=== PATIENT | male | born 1965 | race Caucasian/White ===

== ENCOUNTER 2017-09-27 11:15 | Inpatient (IN) | payer OTHER ==
[2017-09-27] MEDS ORDERED: Metoclopramide IV* 5 MG/ML 2 ML VIAL IV SLOW PU ONE (11:36)
[2017-09-27] MEDS ORDERED: Morphine VIAL* 4 MG/ML VIAL (1 ml vial) IV ONE ×2 (11:36→14:16)
[2017-09-27 12:01] LABS: ABS Basophils 0.1 10^3/ul (0-0.2); ABS Eosinophils 0.6 10^3/ul (0-0.6); ABS Lymphocytes 1.3 10^3/ul (1.0-4.8); ABS Monocytes 1.2 10^3/ul (0-0.8); ABS Neutrophils 10.2 10^3/ul (1.5-7.7); ABS Nucleated RBC 0 10^3/ul; Eosinophil % 4.2 % (0-6); Hematocrit 39 % (42-52); Hemoglobin 13.2 g/dl (14.0-18.0); Lymphocyte % 9.6 % (25-47); Mean Corpuscular HGB Conc 34 g/dl (31-36); Mean Corpuscular Hemoglobin 30 pg (27-31); Mean Corpuscular Volume 90 fL (80-94); Mean Platelet Volume 7.9 um3 (7.4-10.4); Nucleated Red Blood Cells % 0.1; Platelet Count 277 10^3/ul (150-450); Red Blood Count 4.36 10^6/ul (4.0-5.4); Red Cell Distribution Width 14 % (10.5-15); White Blood Count 13.4 10^3/ul (3.5-10.8)
[2017-09-27 12:20] LABS: EGFR Non-African American 44.7 (>60)
--- NOTE | 2017-09-27 12:21 | RAD ---
HISTORY: Syncope COMPARISONS: August 05, 2017, MRI dated August 05, 2017 TECHNIQUE: Multiple contiguous axial CT scans were obtained of the head without intravenous contrast. FINDINGS: HEMORRHAGE/INFARCT: There is no hemorrhage or acute infarct. MASSES/SHIFT: There is no mass or shift. EXTRA-AXIAL SPACES: There are no extra-axial fluid collections. SULCI AND VENTRICLES: The sulci and ventricles are normal in size and position for the patient's stated age. CEREBRUM: There is hypoattenuation of the periventricular and subcortical white matter. BRAINSTEM: There is mild hypoattenuation of the pontine white matter CEREBELLUM: There are no focal parenchymal abnormalities. VESSELS: The vessels are grossly normal. PARANASAL SINUSES: The paranasal sinuses are clear. ORBITS: The orbits are unremarkable. BONES AND SOFT TISSUE: No bone or soft tissue abnormalities are noted. OTHER: None IMPRESSION: NO ACUTE INTRACRANIAL PATHOLOGY. CHRONIC SMALL VESSEL ISCHEMIC CHANGES.
--- NOTE | 2017-09-27 12:43 | RAD ---
HISTORY: Syncope, fall, neck trauma COMPARISONS: None TECHNIQUE: Multiple contiguous axial CT scans were obtained of the cervical spine without intravenous contrast, with coronal and sagittal multiplanar reformations. FINDINGS: BRAIN: The visualized brain is unremarkable CENTRAL CANAL: Evaluation of the central canal is limited on CT technique; however, there is no obvious canalicular mass or epidural hemorrhage. ALIGNMENT: There is a mild scoliotic curvature of the spine. VERTEBRAL BODIES: There is anterolateral marginal osteophyte formation most pronounced of C3-C4 and C5-C6. There is no displaced fracture.. JOINTS: There is osteoarthritis of the atlantoaxial articulation. There is no subluxation or dislocation. MUSCULATURE: Unremarkable INTERVERTEBRAL DISCS: There is diffuse loss of intervertebral disc height. AXIAL IMAGES: C2-C3: There is no osseous neural foraminal narrowing or central canal stenosis. C3-C4: There is mild bilateral neural foraminal narrowing. There is no osseous central canal stenosis. C4-C5: There is no osseous neural foraminal narrowing or central canal stenosis. C5-C6: There is no osseous neural foraminal narrowing or central canal stenosis. C6-C7: There is no osseous neural foraminal narrowing or central canal stenosis. C7-T1: There is no osseous neural foraminal narrowing or central canal stenosis. SOFT TISSUES: The visualized soft tissues of the neck are unremarkable. The prevertebral fat stripe is preserved. OTHER: None. IMPRESSION: NO ACUTE OSSEOUS INJURY TO THE CERVICAL SPINE. DEGENERATIVE DISC DISEASE AND OSTEOARTHRITIS
--- NOTE | 2017-09-27 13:54 | RAD ---
HISTORY: Syncope COMPARISONS: August 05, 2017 VIEWS: 2: Frontal and lateral views of the chest. FINDINGS: CARDIOMEDIASTINAL SILHOUETTE: The cardiomediastinal silhouette is normal. EUSEBIO: The eusebio are normal. PLEURA: The costophrenic angles are sharp. No pleural abnormalities are noted. LUNG PARENCHYMA: There is patchy alveolar opacification of the right lung base near the cardiophrenic angle. ABDOMEN: The upper abdomen is clear. There is no subphrenic gas. BONES AND SOFT TISSUES: No bone or soft tissue abnormalities are noted. OTHER: None. IMPRESSION: PATCHY ATELECTASIS VERSUS CONSOLIDATION OF THE RIGHT LOWER LUNG.
--- NOTE | 2017-09-27 13:55 | RAD ---
HISTORY: Fall. No other history is provided. COMPARISONS: None VIEWS: 4, Frontal, lateral, and oblique views of the left hand FINDINGS: BONE DENSITY: There is diffuse osteopenia. BONES: There is no displaced fracture. JOINTS: There is mild osteoarthritis of the interphalangeal joints. ALIGNMENT: There is no dislocation. SOFT TISSUES: There is peripheral arterial calcification. OTHER FINDINGS: None. IMPRESSION: 1. OSTEOPENIA. 2. PERIPHERAL ARTERIAL DISEASE. 3. NO ACUTE OSSEOUS INJURY. IF SYMPTOMS PERSIST, RECOMMEND REPEAT IMAGING.
--- NOTE | 2017-09-27 14:02 | RAD ---
INDICATION: Left hip injury. COMPARISON: There are no prior studies available for comparison. TECHNIQUE: An AP view of the pelvis and frontal and lateral views of the left hip were obtained. FINDINGS: Due to the position of the left hip the left femoral neck is not visualized. There is likely an underlying fracture although this is not well demonstrated. No other fractures are seen. IMPRESSION: PROBABLE LEFT FEMORAL NECK FRACTURE NOT WELL SEEN ON THE IMAGES. RECOMMEND A CT OF THE PELVIS AND LEFT HIP FOR FURTHER EVALUATION.
--- NOTE | 2017-09-27 15:04 | RAD ---
INDICATION: Left hip fracture COMPARISON: Left hip same date TECHNIQUE: Noncontrast axial source images were obtained from the iliac crests through the symphysis pubis. FINDINGS: There is a transverse fracture through the left femoral neck. There is foreshortening varus angulation. The femoral head remains in the acetabulum. There are no other fractures of the bony pelvis or proximal femurs. No free fluid or adenopathy is seen. The noncontrast CT appearance of the bowel is unremarkable. The superficial soft tissues appear normal. The bladder appears normal. IMPRESSION: LEFT FEMORAL NECK FRACTURE
[2017-09-27 15:37] LABS: Urine Appearance Clear; Urine Blood Negative (Negative); Urine Color Yellow; Urine Ketones Negative (Negative); Urine Protein Negative (Negative); Urine Specific Gravity 1.012 (1.010-1.030); Urine Urobilinogen Negative (Negative)
--- NOTE | 2017-09-27 15:46 | ED ---
Adult Trauma - HPI Summary HPI Summary: Patient is a 52-year-old male presenting to the ED by [address] [place] [address] with chief complaint of left hip pain since a fall last evening at 5 PM. He states upon attempting to get out of his wheelchair, he began to get dizzy and fell backwards, hitting the neck on his wheelchair and falling directly onto his left hip. He has been unable to ambulate since that time. Guards at the present were able to help him back into his wheelchair where he remained for the rest of the evening. He endorses continuing pain this morning and was brought to the ED for evaluation. He also endorses left hand pain, but denies any range of motion limitations. He denied hitting his head, loss of consciousness, memory loss, confusion, visual or double vision changes. However , history of 3 recent CVA, most recent 2 months ago and was hospitalized here at [facility]. He is currently on Plavix and aspirin. - History of Current Complaint Chief Complaint: EDHipPelvisInjury Stated Complaint: HIP PAIN Time Seen by Provider: 09/27/17 11:21 Hx Obtained From: Patient Mechanism of Injury: Direct Blow Ambulatory at the Scene: No Onset/Duration: Started Hours Ago Onset of Pain: Immediate Onset Severity: Moderate Current Severity: Moderate Pain Intensity: 6 Pain Scale Used: 0-10 Numeric Location: Chest Character: Aching Aggravating Factor(s): Nothing Alleviating Factor(s): Rest, Ice Associated Signs & Symptoms: Positive: Negative - No I cannot recall almost every day for Related History: Anticoagulants - Additional Pertinent History Primary Care Physician: KRISHAN - Allergy/Home Medications Allergies/Adverse Reactions: Allergies Allergy/AdvReac Type Severity Reaction Status Date / Time atorvastatin Allergy Unknown Verified 08/05/17 08:39 Reaction Details codeine Allergy Unknown Verified 08/05/17 08:39 Reaction Details penicillin G Allergy Rash Verified 08/05/17 08:39 Sulfa (Sulfonamide Allergy Rash Verified 08/05/17 08:39 Antibiotics) Home Medications: Home Medications Fluticasone HFA 220 mcg(NF) [Flovent HFA 220 Mcg(NF)] 1 puff INH BID 09/27/17 [ History Confirmed 09/27/17] PMH/Surg Hx/FS Hx/Imm Hx Previously Healthy: Yes Endocrine/Hematology History: Reports: Hx Diabetes - TYPE 2 IDDM Cardiovascular History: Reports: Hx Angina, Hx Coronary Artery Disease - EF%60, Hx Hypercholesterolemia - HLD, Hx Hypertension, Hx Peripheral Vascular Disease, Other Cardiovascular Problems/Disorders - BL LE EDEMA, CARDIAC CATH WITH STENTS X 3 2009 Denies: Hx Pacemaker/ICD Respiratory History: Reports: Hx Asthma, Hx Chronic Obstructive Pulmonary Disease (COPD) GI History: Reports: Hx Gastroesophageal Reflux Disease, Hx Ulcer History: Reports: Hx Benign Prostatic Hyperplasia, Other Problems/ Disorders - STRAIGHT CATH QID W/ 14FR Musculoskeletal History: Reports: Hx Back Problems, Other Musculoskeletal History - RIGHT SIDED WEAKNESS R/T OLD CVA Sensory History: Reports: Hx Contacts or Glasses - NOT W/PT, Hx Hearing Aid - NOT W/PT, Hx Hearing Problem Opthamlomology History: Reports: Hx Contacts or Glasses - NOT W/PT Neurological History: Reports: Hx Dementia, 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, Other Neuro Impairments/Disorders - NEUROPATHY BL LE FEET TO KNEE Psychiatric History: Reports: Hx Depression, Hx Suicide Attempt - 2005 Denies: Hx Panic Disorder - Surgical History Surgery Procedure, Year, and Place: TONSILECTOMY, CARDIAC STENT 2010 X 3 Hx Anesthesia Reactions: No Infectious Disease History: No Infectious Disease History: Denies: Traveled Outside the [place] in Last 30 Days - Family History Known Family History: Positive: Unknown Negative: Blood Disorder - Social History Occupation: Unemployed Lives: With Family Alcohol Use: None Hx Substance Use: No Substance Use Type: Reports: None Hx Tobacco Use: No Smoking Status (MU): Never Smoked Tobacco Review of Systems Constitutional: Negative Negative: Fever, Chills, Fatigue Eyes: Negative Cardiovascular: Negative Respiratory: Negative Positive: Arthralgia Skin: Negative Neurological: Negative All Other Systems Reviewed And Are Negative: Yes Physical Exam Triage Information Reviewed: Yes Vital Signs On Initial Exam: Initial Vitals Pulse Resp BP Pulse Ox 80 15 130/71 95 09/27/17 11:27 09/27/17 11:27 09/27/17 11:27 09/27/17 11:27 Appearance: Positive: Well-Appearing, Well-Nourished Head/Face: Positive: Normal Head/Face Inspection Eyes: Positive: EOMI, MORAIMA Neck: Positive: Supple, No Lymphadenopathy Respiratory/Lung Sounds: Positive: Clear to Auscultation, Breath Sounds Present Cardiovascular: Positive: RRR Musculoskeletal: Positive: Pain @ - left hip Neurological: Positive: Speech Normal Psychiatric: Positive: Affect/Mood Appropriate Diagnostics - Vital Signs Vital Signs Temp Pulse Resp BP Pulse Ox 09/27/17 15:04 16 09/27/17 12:06 75 92 09/27/17 11:53 16 09/27/17 11:31 98.1 F 80 16 130/71 99 09/27/17 11:27 80 15 130/71 95 - Laboratory Lab Results: Lab Results 09/27/17 09/27/17 09/27/17 Range/Units 11:49 11:49 11:49 WBC 13.4 H (3.5-10.8) 10^3/ul RBC 4.36 (4.0-5.4) 10^6/ul Hgb 13.2 L (14.0-18.0) g/dl Hct 39 L (42-52) % MCV 90 (80-94) fL MCH 30 (27-31) pg MCHC 34 (31-36) g/dl RDW 14 (10.5-15) % Plt Count 277 (150-450) 10^3/ul MPV 7.9 (7.4-10.4) um3 Neut % (Auto) 76.2 (38-83) % Lymph % (Auto) 9.6 L (25-47) % Geary % (Auto) 9.3 H (0-7) % Eos % (Auto) 4.2 (0-6) % Baso % (Auto) 0.7 (0-2) % Absolute Neuts (auto) 10.2 H (1.5-7.7) 10^3/ul Absolute Lymphs (auto) 1.3 (1.0-4.8) 10^3/ul Absolute Monos (auto) 1.2 H (0-0.8) 10^3/ul Absolute Eos (auto) 0.6 (0-0.6) 10^3/ul Absolute Basos (auto) 0.1 (0-0.2) 10^3/ul Absolute Nucleated RBC 0 10^3/ul Nucleated RBC % 0.1 Sodium 136 L (139-145) mmol/L Potassium 4.8 (3.5-5.0) mmol/L Chloride 109 (101-111) mmol/L Carbon Dioxide 20 L (22-32) mmol/L Anion Gap 7 (2-11) mmol/L BUN 32 H (6-24) mg/dL Creatinine 1.63 H (0.67-1.17) mg/dL Est GFR ( Amer) 57.4 (>60) Est GFR (Non-Af Amer) 44.7 (>60) BUN/Creatinine Ratio 19.6 (8-20) Glucose 147 H (70-100) mg/dL Lactic Acid 1.5 (0.5-2.0) mmol/L Calcium 9.9 (8.6-10.3) mg/dL Total Bilirubin 0.50 (0.2-1.0) mg/dL AST 20 (13-39) U/L ALT 20 (7-52) U/L Alkaline Phosphatase 105 H (34-104) U/L CK-MB (CK-2) 4.3 (0.6-6.3) ng/mL Troponin I 0.01 (<0.04) ng/mL Total Protein 7.9 (6.4-8.9) g/dL Albumin 4.4 (3.2-5.2) g/dL Globulin 3.5 (2-4) g/dL Albumin/Globulin Ratio 1.3 (1-3) Urine Color Urine Appearance Urine pH (5-9) Ur Specific [place] (1.010-1.030) Urine Protein (Negative) Urine Ketones (Negative) Urine Blood (Negative) Urine Nitrate (Negative) Urine Bilirubin (Negative) Urine Urobilinogen (Negative) Ur Leukocyte Esterase (Negative) Urine Glucose (Negative) 18/18 Range/Units 15:27 WBC (3.5-10.8) 10^3/ul RBC (4.0-5.4) 10^6/ul Hgb (14.0-18.0) g/dl Hct (42-52) % MCV (80-94) fL MCH (27-31) pg MCHC (31-36) g/dl RDW (10.5-15) % Plt Count (150-450) 10^3/ul MPV (7.4-10.4) um3 Neut % (Auto) (38-83) % Lymph % (Auto) (25-47) % Geary % (Auto) (0-7) % Eos % (Auto) (0-6) % Baso % (Auto) (0-2) % Absolute Neuts (auto) (1.5-7.7) 10^3/ul Absolute Lymphs (auto) (1.0-4.8) 10^3/ul Absolute Monos (auto) (0-0.8) 10^3/ul Absolute Eos (auto) (0-0.6) 10^3/ul Absolute Basos (auto) (0-0.2) 10^3/ul Absolute Nucleated RBC 10^3/ul Nucleated RBC % Sodium (139-145) mmol/L Potassium (3.5-5.0) mmol/L Chloride (101-111) mmol/L Carbon Dioxide (22-32) mmol/L Anion Gap (2-11) mmol/L BUN (6-24) mg/dL Creatinine (0.67-1.17) mg/dL Est GFR ( Amer) (>60) Est GFR (Non-Af Amer) (>60) BUN/Creatinine Ratio (8-20) Glucose (70-100) mg/dL Lactic Acid (0.5-2.0) mmol/L Calcium (8.6-10.3) mg/dL Total Bilirubin (0.2-1.0) mg/dL AST (13-39) U/L ALT (7-52) U/L Alkaline Phosphatase (34-104) U/L CK-MB (CK-2) (0.6-6.3) ng/mL Troponin I (<0.04) ng/mL Total Protein (6.4-8.9) g/dL Albumin (3.2-5.2) g/dL Globulin (2-4) g/dL Albumin/Globulin Ratio (1-3) Urine Color Yellow Urine Appearance Clear Urine pH 5.0 (5-9) Ur Specific [place] 1.012 (1.010-1.030) Urine Protein Negative (Negative) Urine Ketones Negative (Negative) Urine Blood Negative (Negative) Urine Nitrate Negative (Negative) Urine Bilirubin Negative (Negative) Urine Urobilinogen Negative (Negative) Ur Leukocyte Esterase Negative (Negative) Urine Glucose 1+(50 mg/dl) A (Negative) Result Diagrams: 09/27/17 11:49 09/27/17 11:49 Lab Statement: Any lab studies that have been ordered have been reviewed, and results considered in the medical decision making process. Adult Trauma Course/Dx - Course Course Of Treatment: During the course of treatment, the patient is evaluated for left hip pain as well as left hand pain and head/neck injury after a fall last evening. CT brain and cervical spine obtained which show no acute findings. Hand x-ray obtained which shows no acute findings. IMPRESSION: PROBABLE LEFT FEMORAL NECK FRACTURE NOT WELL SEEN ON THE IMAGES. CT OF THE PELVIS AND LEFT HIP FOR FURTHER EVALUATION. IMPRESSION: LEFT FEMORAL NECK FRACTURE. Discussed the case with Dr. Vega who agrees to admit. Slightly elevated white count. Discussed case with Dr. Spangler at 3:45 PM. - Diagnoses Differential Diagnosis/HQI/PQRI: Positive: Contusion(s), Fracture Provider Diagnoses: Femoral neck fracture - Physician Notifications Discussed Care Of Patient With: Kevyn Spangler - will see patient at [facility] [place] - admit Discharge - Sign-Out/Discharge Documenting (check all that apply): Discharge/Admit/Transfer Signing out patient TO: Devonte Vega - Discharge Plan Condition: Fair Disposition: ADMITTED TO [facility] Referrals: Los DUPREE,Janey Hodges [Primary Care Provider] - - Billing Disposition and Condition Condition: FAIR Disposition: HOSP-[facility] [place]
[2017-09-27] MEDS ORDERED: oxyCODONE/Acetamin 5/325 MG* TAB PO PRN ×2 (16:08→22:15)
[2017-09-27] MEDS ORDERED: Dextrose 50% Syringe 50 ML* 25 GM/50 ML SYRINGE IV PUSH PRN (16:11)
[2017-09-27] MEDS ORDERED: Acetaminophen TAB* 325 MG PO PRN (16:12)
[2017-09-27] MEDS ORDERED: Insulin GLARGINE(*) 1 UNITS UNIT SUBCUT ONE (21:00)
[2017-09-27] MEDS: Insulin LISPRO* 1 UNITS UNIT SUBCUT SCH ×2 (22:03→22:20)
[2017-09-27] MEDS ORDERED: Morphine VIAL* 4 MG/ML VIAL (1 ml vial) IV PRN (22:14)
[2017-09-27] MEDS ORDERED: oxyCODONE/Acetamin 5/325 MG* TAB PO ONE (22:15)
[2017-09-27] MEDS: Gemfibrozil TAB* 600 MG PO SCH (22:23)
[2017-09-27] MEDS: Donepezil TAB* 5 MG PO SCH (22:23)
[2017-09-27] MEDS: Famotidine TAB* 20 MG PO SCH (22:23)
[2017-09-27] MEDS: Cholecalciferol TAB* 1000 UNITS PO SCH (22:23)
[2017-09-27] MEDS: Tamsulosin CAP* 0.4 MG PO SCH (22:23)
[2017-09-27] MEDS: CMC:Rosuvastatin (NF) 20 MG TAB PO SCH (22:24)
[2017-09-27] MEDS: Metoprolol Succinate XL TAB* 25 MG PO SCH (22:26)
[2017-09-27] MEDS: Isosorbide Dinitrate TAB* 10 MG PO SCH (23:35)
--- NOTE | 2017-09-28 02:13 | HP ---
HISTORY AND PHYSICAL: DATE OF ADMISSION: 09/27/17 ADMITTING PROVIDER: Devonte Vega MD PRIMARY CARE PROVIDER: [facility]. CHIEF COMPLAINT: left hip pain after fall. HISTORY OF PRESENT ILLNESS: Demetrio Soni is a 52-year-old male with past medical history of multiple strokes, CAD, insulin dependent diabetes mellitus, COPD, hypertension, myocardial infarction, dementia, hyperlipidemia, BPH with recent acute stroke last 08/05/17. He has been using a wheelchair since discharge given worsening left-side weakness. The night prior to admission, he was standing up from his wheelchair to shave. He looked down and looked back up , got very dizzy, started to turn around trying to sit down and fell on his left hip and hands. He had pain in the left hip. The morning of admission, he was brought by ambulance to [facility], had imaging, x-ray initially that was concerning for possible femur fracture and this was confirmed on CT pelvis. Dr. Spangler of Orthopedics was consulted in the emergency room and is going to see the patient. The patient may need a hemiarthroplasty. His creatinine is slightly elevated at 1.6 from his baseline 1.3 to 1.4. He says he is currently somewhat short of breath. He has some wheezing and denies any chest pain. He has been more dizzy since the stroke. PAST MEDICAL HISTORY: BPH, CVA x3, CAD, [place], insulin dependent diabetes mellitus with A1c of 10.5 in May 2017, hypertension, dementia, hyperlipidemia. PAST SURGICAL HISTORY: Heart catheterization. MEDICATIONS: Include: 1. Flomax 0.5 mg q.h.s. 2. Spironolactone 50 mg p.o. daily. 3. Crestor 20 mg p.o. q.h.s. 4. Zantac 150 mg p.o. b.i.d. 5. Metoprolol succinate 25 mg p.o. at bedtime. 6. Lisinopril 10 mg p.o. at bedtime. 7. Isosorbide dinitrate 10 mg p.o. b.i.d. 8. Lantus 40 units subcutaneous b.i.d. 9. Gemfibrozil 600 mg p.o. b.i.d. 10. Lasix 20 mg p.o. q.a.m. 11. Flovent 1 puff inhaled b.i.d. 12. Aricept 5 mg p.o. q.h.s. 13. Docusate 200 mg p.o. daily. 14. Plavix 75 mg p.o. daily. 15. Cholecalciferol 5000 units p.o. at bedtime. 16. Zyrtec 10 mg p.o. daily. 17. Aspirin 81 mg daily. 18. Acetaminophen 650 mg p.o. t.i.d. p.r.n. ALLERGIES: PENICILLIN with rash, SULFA rash, CODEINE unknown, ATORVASTATIN unknown. FAMILY HISTORY: Mother with brain aneurysm, father with kidney cancer. SOCIAL HISTORY: He is a former smoker, only 2 years. No drug use or alcohol use. All of his family is , he does not have a medical surrogate that he can tell me at this time. REVIEW OF SYSTEMS: A complete 14-point review of systems was negative as per HPI. He denies any chest pain. He has numbness and paraesthesias in his bilateral legs from neuropathy and left-sided weakness of lower extremities. PHYSICAL EXAMINATION GENERAL: The patient is in no acute distress. VITAL SIGNS: Temperature 98.1, heart rate 90, oxygen sat 93%, respiratory rate 12, blood pressure 119/86. HEENT: Normocephalic, atraumatic except for a slight bruise on his left neck. Pupils equal, round, and reactive to light. Extraocular motion is intact. No scleral icterus. NECK: Supple. No cervical lymphadenopathy. PULMONARY: Anteriorly clear to auscultation bilaterally with no wheezing, rales or rhonchi. CARDIOVASCULAR: Regular rate and rhythm. No murmurs, rubs or gallops. ABDOMEN: Soft, nontender. Slightly distended/obese. EXTREMITIES: Warm, well-perfused. No peripheral edema. SKIN: No lesions, no rashes. NEUROLOGIC: Complete testing not performed due to left femur fracture. 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 Sensation is diminished bilaterally in lower extremities. Some slight proprioception in the right greater toe. Cranial nerves intact. LABORATORY DATA: White count 13.4, hemoglobin 13.2, hematocrit 39, platelets 277. Sodium 136, potassium 4.8, chloride 109, carbon dioxide 20, BUN 32, creatinine 1.63, glucose 147, lactic acid 1.5. AST 20, ALT 20, alk phos 105, troponin 0.01. IMAGING: Chest x-ray demonstrated patchy atelectasis versus consolidation at the right lower lobe. CT of the head, noncontrast, showed no acute intracranial pathology. There are chronic small vessel ischemic changes. The cervical spine CT demonstrated no acute osseous injury to the cervical spine, degenerative disk disease and osteoarthritis. Hand x-ray demonstrated osteopenia. Peripheral arterial disease. No acute osseous injury. His hip and pelvis x-ray demonstrated probable left femoral neck fracture, not well seen on the images. Recommend CT of the pelvis and left hip for further evaluation. His pelvis CT demonstrated left femoral neck fracture, transverse fracture to the left femoral neck with foreshortening varus and varus angulation. ASSESSMENT AND PLAN: Demetrio Soni is a 52-year-old male incarcerated prisoner at [place] presenting with history of multiple cerebrovascular accidents, coronary artery disease, myocardial infarction, insulin dependent diabetes mellitus, chronic obstructive pulmonary disease presenting with left femur fracture. We will follow up with Dr. Spangler's recommendations, put him n.p.o. at midnight for possible hemiarthroplasty procedure. He has a slight JEFFREY. I am going to hold his lisinopril,spironolactone and Lasix. We will hold his Plavix in the setting of possible surgery tomorrow. Continue his aspirin. I am going to reduce his Lantus to 20 units tonight from 40 units b.i.d. and will be started after surgery. He will be n.p.o. At midnight [address] Dr. Spangler's recommendations. We will give him Percocet for pain control, continue his Crestor 20 mg daily, his Flomax 0.4 mg daily. Continue his metoprolol succinate 25 mg p.o. at bedtime and isosorbide dinitrate 10 mg b.i.d., also his Aricept 5 mg p.o. at bedtime, get [id number] q.a.c. and h.s. with high dose sliding scale. He is going to be admitted to inpatient status. He does not have medical surrogate. He desires to be a full code. ADDENDUM: After Dr. Spangler saw the patient, surgery will be deferred until at least Friday 09/22. npo at midnight order canceled and insulin increased. [id number]/[facility] #: [id number] [facility]
[2017-09-28] MEDS: oxyCODONE/Acetamin 5/325 MG* TAB PO PRN ×4 (03:59→18:14)
[2017-09-28 06:25] LABS: ABS Basophils 0.1 10^3/ul (0-0.2); ABS Lymphocytes 1.8 10^3/ul (1.0-4.8); ABS Monocytes 1.2 10^3/ul (0-0.8); ABS Neutrophils 6.5 10^3/ul (1.5-7.7); ABS Nucleated RBC 0 10^3/ul; Eosinophil % 9.9 % (0-6); Hematocrit 37 % (42-52); Hemoglobin 12.4 g/dl (14.0-18.0); Lymphocyte % 16.6 % (25-47); Mean Corpuscular HGB Conc 34 g/dl (31-36); Mean Corpuscular Hemoglobin 31 pg (27-31); Mean Corpuscular Volume 91 fL (80-94); Mean Platelet Volume 7.8 um3 (7.4-10.4); Nucleated Red Blood Cells % 0; Platelet Count 240 10^3/ul (150-450); Red Blood Count 4.04 10^6/ul (4.0-5.4); Red Cell Distribution Width 14 % (10.5-15); White Blood Count 10.6 10^3/ul (3.5-10.8)
[2017-09-28 06:30] LABS: INR 1.13 (0.77-1.02)
[2017-09-28 06:39] LABS: EGFR Non-African American 47.3 (>60)
[2017-09-28] MEDS ORDERED: Aspirin EC TAB* 81 MG TAB.EC PO SCH (09:00)
[2017-09-28] MEDS: Mometasone 220 MCG MDI INH SCH (09:04)
[2017-09-28] MEDS: Gemfibrozil TAB* 600 MG PO SCH ×2 (09:34→21:05)
[2017-09-28] MEDS: Docusate CAP* 100 MG PO SCH (09:35)
[2017-09-28] MEDS: Famotidine TAB* 20 MG PO SCH ×2 (09:36→21:06)
[2017-09-28] MEDS: Cetirizine* 10 MG TAB PO SCH (09:36)
[2017-09-28] MEDS: Insulin LISPRO* 1 UNITS UNIT SUBCUT SCH ×4 (09:37→21:24)
[2017-09-28] MEDS: Isosorbide Dinitrate TAB* 10 MG PO SCH ×2 (10:44→21:06)
[2017-09-28] MEDS ORDERED: NS 0.9% 1000 ML* 1,000 ML IV SCH (10:45)
[2017-09-28] MEDS: Cyclobenzaprine TAB* 10 MG PO PRN ×2 (12:04→21:22)
--- NOTE | 2017-09-28 15:55 | CONS ---
ORTHOPEDIC CONSULT REPORT: DATE OF CONSULT: 09/27/17 CHIEF COMPLAINT: Left hip pain. HISTORY OF PRESENT ILLNESS: Mr. Soni is a 52-year-old male who has a complex medical history. He had fallen yesterday at [facility]. He already had a history of troubles with transferring because of a stroke and had left-sided weakness. The guards had helped him back into his wheelchair, but he ended up staying in the wheelchair overnight because he was unable to transfer himself back to his bed because of his inability to put weight on th eleft leg because of pain. He was brought to the emergency room here at [facility] earlier today and x-rays were taken, which had found a displaced left femoral neck fracture. He has been admitted and initially I thought we will be able to add him on to the schedule tomorrow as he is 52, but upon meeting him and reviewing his records with his significant medical history, I have contacted the hospitalist to make sure his optimization would be complete and they agreed that an extra day would be. He reports that his left hip hurts. He runs his hand over the outer side and then down into the groin as to where he has pain. He has not had any troubles like this with the hip or fractures before. PREVIOUS MEDICAL HISTORY: BPH, CVA x3, coronary artery disease with AL, diabetes, hypertension, dementia, dyslipidemia. MEDICATIONS ON ADMISSION: 1. Flomax 0.5 mg p.o. q.h.s. 2. Spironolactone 50 mg p.o. daily. 3. Crestor 20 mg p.o. q.h.s. 4. Zantac 150 mg p.o. b.i.d. 5. Metoprolol 25 mg p.o. q.h.s. 6. Lisinopril 10 mg p.o. q.h.s. 7. Isosorbide 10 mg p.o. b.i.d. 8. Lantus 40 units subcu b.i.d. 9. Gemfibrozil 600 mg p.o. b.i.d. 10. Lasix 20 mg p.o. q.a.m. 11. Flovent 1 puff b.i.d. 12. Aricept 5 mg p.o. q.h.s. 13. Docusate 200 mg p.o. daily. 14. Plavix 75 mg daily. 15. Calcium supplementation. 16. Zyrtec 10 mg daily. 17. Aspirin 81 mg daily. 18. Tylenol 650 mg p.o. t.i.d. p.r.n. MEDICATION ALLERGIES: PENICILLIN and SULFA, which caused a rash. CODEINE and ATORVASTATIN. PHYSICAL EXAM: General: Mature male, in no apparent distress, lying on the hospital bed, eating dinner, no apparent distress. HEENT: Normocephalic. No lacerations or abrasions about his head or face. Extraocular muscles intact. Neck: Supple. Cardiovascular: S1, S2. Lungs: No wheezing, rales, or rhonchi heard. Extremities: Left lower is shortened and externally rotated on the left leg. He reports no sensation over the dorsum of the foot, ankle, and he reports he is actually fairly numb all the way up to the knee. He can wiggle the toes a little bit and plantar and dorsiflex the ankle a little bit as well. Motion of the leg is very specifically painful at the hip. DIAGNOSTIC STUDIES: X-rays and CAT scan of the hip are available for review. It could be seen he has a displaced femoral neck fracture. ASSESSMENT: Displaced femoral neck fracture. PLAN: I discussed with Mr. Soni that with a displaced femoral neck fracture , treatment for this is a hemiarthroplasty. I reviewed with him the reasons of why this fails with an ORIF, plus the risks of surgery such as infection, scar formation, stiffness, DVT, and pulmonary embolism. These were emphasized as well as the need for rehab and physical therapy. The guards adding that they have physical therapy at the residential 3 times a week and Mr. Soni agrees, saying that he was actually scheduled for physical therapy there today. We will tentatively add him on for Saturday morning, so that there is time to make sure he is considered medically optimized. [id number]/[facility] #: [id number] SHY
--- NOTE | 2017-09-28 16:22 | PN ---
Subjective Date of Service: 09/28/17 Interval History: Pt c/o left hand and left hip pain after a fall. At baseline he ambulates without assistance but with unsteady gait due to chronic left sided weakness, stated that usually he gets "dizzy" and that limited his ambulation prior to fall. Denies recent worsening in exercise tolerance or CP on exertion. C/o chronic SOB due to COPD. Objective Active Medications: Acetaminophen (Tylenol Tab*) 650 mg PO TID PRN PRN Reason: PAIN Aspirin (Aspirin Ec Tab*) 81 mg PO DAILY [facility] Last Admin: 09/28/17 09:34 Dose: 81 mg Cetirizine HCl (Zyrtec*) 10 mg PO DAILY [facility] PRN Reason: Protocol Last Admin: 09/28/17 09:36 Dose: 10 mg Cholecalciferol (Vitamin D Tab*) 5,000 units PO BEDTIME [facility] Last Admin: 09/27/17 22:23 Dose: 5,000 units Cyclobenzaprine HCl (Flexeril Tab*) 10 mg PO TID PRN PRN Reason: muscle spasms Last Admin: 09/28/17 12:04 Dose: 10 mg Dextrose (D50w Syringe 50 Ml*) 12.5 gm IV PUSH .FOR FS < 60 - SS PRN PRN Reason: FS < 60 Docusate Sodium (Colace Cap*) 200 mg PO DAILY [facility] Last Admin: 09/28/17 09:35 Dose: 200 mg Donepezil HCl (Aricept Tab*) 5 mg PO BEDTIME [facility] Last Admin: 09/27/17 22:23 Dose: 5 mg Famotidine (Pepcid Tab*) 20 mg PO BID [facility] PRN Reason: Protocol Last Admin: 09/28/17 09:36 Dose: 20 mg Gabapentin (Neurontin Cap(*)) 300 mg PO ONCE ONE Stop: 09/29/17 06:01 Gemfibrozil (Lopid Tab*) 600 mg PO BID [facility] Last Admin: 09/28/17 09:34 Dose: 600 mg Sodium Chloride (Ns 0.9% 1000 Ml*) 1,000 mls @ 75 mls/hr IV PER RATE [facility] Last Admin: 09/28/17 12:02 Dose: 75 mls/hr Lactated Ringer's (Lactated Ringers 1000 Ml Bag*) 1,000 mls @ 125 mls/hr IV PER RATE [facility] Insulin Glargine (Lantus(*)) 10 units SUBCUT Q24H [facility] Insulin Human Lispro (Humalog*) 0 units SUBCUT ACHS VIN PRN Reason: Protocol Last Admin: 09/28/17 12:57 Dose: 6 units Isosorbide Dinitrate (Isordil Tab*) 10 mg PO BID [facility] Levalbuterol HCl (Xopenex 0.63mg/3ml Neb*) 0.63 mg INH ONCE ONE Stop: 09/29/17 06:01 Metoprolol Succinate (Toprol Xl Tab*) 25 mg PO BEDTIME [facility] Last Admin: 09/27/17 22:26 Dose: 25 mg Mometasone Furoate (Asmanex 220 Mcg Mdi *) 2 puff INH DAILY [facility] Last Admin: 09/28/17 09:04 Dose: 2 puff Morphine Sulfate (Morphine Vial*) 4 mg IV Q4H PRN PRN Reason: PAIN - BREAKTHROUGH Oxycodone/Acetaminophen (Percocet 5/325 Tab*) 2 tab PO Q4H PRN PRN Reason: PAIN - MODERATE TO SEVERE Last Admin: 09/28/17 13:59 Dose: 2 tab Oxycodone/Acetaminophen (Percocet 5/325 Tab*) 1 tab PO Q4H PRN PRN Reason: PAIN - MILD TO MODERATE Rosuvastatin Calcium (Crestor (Nf)) 20 mg PO BEDTIME [facility] Last Admin: 09/27/17 22:24 Dose: 20 mg Sertraline HCl (Zoloft*) 75 mg PO BEDTIME [facility] Tamsulosin HCl (Flomax Cap*) 0.4 mg PO BEDTIME [facility] Last Admin: 09/27/17 22:23 Dose: 0.4 mg Vital Signs - 8 hr 09/28/17 09/28/17 09/28/17 08:30 09:06 09:30 Temperature Pulse Rate 84 Respiratory 18 20 18 Rate Blood Pressure (mmHg) O2 Sat by Pulse 91 Oximetry 09/28/17 09/28/17 09/28/17 09:34 11:33 12:04 Temperature 97.6 F Pulse Rate 89 Respiratory 18 18 18 Rate Blood Pressure 125/88 (mmHg) O2 Sat by Pulse 93 Oximetry 09/28/17 09/28/17 13:59 15:50 Temperature 98.4 F Pulse Rate 72 Respiratory 18 16 Rate Blood Pressure 126/78 (mmHg) O2 Sat by Pulse 99 Oximetry Oxygen Devices in Use Now: None Appearance: 52 yo M in nAD, AAOx3 Eyes: No Scleral Icterus, PERRLA Ears/Nose/Mouth/Throat: NL Teeth, Lips, Gums, Mucous Membranes Moist Neck: NL Appearance and Movements; NL JVP, Trachea Midline Respiratory: Symmetrical Chest Expansion and Respiratory Effort, Clear to Auscultation Cardiovascular: NL Sounds; No Murmurs; No JVD, RRR Abdominal: NL Sounds; No Tenderness; No Distention Lymphatic: No Cervical Adenopathy Extremities: No Edema, No Clubbing, Cyanosis Skin: No Nodules or Sclerosis, - - left hand contusion inn lateral aspect Neurological: Alert and Oriented x 3, - - left facial droop, left arm weakness at 4+/5, left leg not evaluated due to know fx and pain. Result Diagrams: 09/28/17 06:05 09/28/17 06:05 Additional Lab and Data: Lab Results 09/27/17 09/27/17 09/27/17 Range/Units 11:49 11:49 11:49 WBC 13.4 H (3.5-10.8) 10^3/ul RBC 4.36 (4.0-5.4) 10^6/ul Hgb 13.2 L (14.0-18.0) g/dl Hct 39 L (42-52) % MCV 90 (80-94) fL MCH 30 (27-31) pg MCHC 34 (31-36) g/dl RDW 14 (10.5-15) % Plt Count 277 (150-450) 10^3/ul MPV 7.9 (7.4-10.4) um3 Neut % (Auto) 76.2 (38-83) % Lymph % (Auto) 9.6 L (25-47) % [place] % (Auto) 9.3 H (0-7) % Eos % (Auto) 4.2 (0-6) % Baso % (Auto) 0.7 (0-2) % Absolute Neuts (auto) 10.2 H (1.5-7.7) 10^3/ul Absolute Lymphs (auto) 1.3 (1.0-4.8) 10^3/ul Absolute Monos (auto) 1.2 H (0-0.8) 10^3/ul Absolute Eos (auto) 0.6 (0-0.6) 10^3/ul Absolute Basos (auto) 0.1 (0-0.2) 10^3/ul Absolute Nucleated RBC 0 10^3/ul Nucleated RBC % 0.1 Sodium 136 L (139-145) mmol/L Potassium 4.8 (3.5-5.0) mmol/L Chloride 109 (101-111) mmol/L Carbon Dioxide 20 L (22-32) mmol/L Anion Gap 7 (2-11) mmol/L BUN 32 H (6-24) mg/dL Creatinine 1.63 H (0.67-1.17) mg/dL Est GFR ( Amer) 57.4 (>60) Est GFR (Non-Af Amer) 44.7 (>60) BUN/Creatinine Ratio 19.6 (8-20) Glucose 147 H (70-100) mg/dL Lactic Acid 1.5 (0.5-2.0) mmol/L Calcium 9.9 (8.6-10.3) mg/dL Total Bilirubin 0.50 (0.2-1.0) mg/dL AST 20 (13-39) U/L ALT 20 (7-52) U/L Alkaline Phosphatase 105 H (34-104) U/L CK-MB (CK-2) 4.3 (0.6-6.3) ng/mL Troponin I 0.01 (<0.04) ng/mL Total Protein 7.9 (6.4-8.9) g/dL Albumin 4.4 (3.2-5.2) g/dL Globulin 3.5 (2-4) g/dL Albumin/Globulin Ratio 1.3 (1-3) Urine Color Urine Appearance Urine pH (5-9) Ur Specific [place] (1.010-1.030) Urine Protein (Negative) Urine Ketones (Negative) Urine Blood (Negative) Urine Nitrate (Negative) Urine Bilirubin (Negative) Urine Urobilinogen (Negative) Ur Leukocyte Esterase (Negative) Urine Glucose (Negative) 09/27/17 Range/Units 15:27 WBC (3.5-10.8) 10^3/ul RBC (4.0-5.4) 10^6/ul Hgb (14.0-18.0) g/dl Hct (42-52) % MCV (80-94) fL MCH (27-31) pg MCHC (31-36) g/dl RDW (10.5-15) % Plt Count (150-450) 10^3/ul MPV (7.4-10.4) um3 Neut % (Auto) (38-83) % Lymph % (Auto) (25-47) % [place] % (Auto) (0-7) % Eos % (Auto) (0-6) % Baso % (Auto) (0-2) % Absolute Neuts (auto) (1.5-7.7) 10^3/ul Absolute Lymphs (auto) (1.0-4.8) 10^3/ul Absolute Monos (auto) (0-0.8) 10^3/ul Absolute Eos (auto) (0-0.6) 10^3/ul Absolute Basos (auto) (0-0.2) 10^3/ul Absolute Nucleated RBC 10^3/ul Nucleated RBC % Sodium (139-145) mmol/L Potassium (3.5-5.0) mmol/L Chloride (101-111) mmol/L Carbon Dioxide (22-32) mmol/L Anion Gap (2-11) mmol/L BUN (6-24) mg/dL Creatinine (0.67-1.17) mg/dL Est GFR ( Amer) (>60) Est GFR (Non-Af Amer) (>60) BUN/Creatinine Ratio (8-20) Glucose (70-100) mg/dL Lactic Acid (0.5-2.0) mmol/L Calcium (8.6-10.3) mg/dL Total Bilirubin (0.2-1.0) mg/dL AST (13-39) U/L ALT (7-52) U/L Alkaline Phosphatase (34-104) U/L CK-MB (CK-2) (0.6-6.3) ng/mL Troponin I (<0.04) ng/mL Total Protein (6.4-8.9) g/dL Albumin (3.2-5.2) g/dL Globulin (2-4) g/dL Albumin/Globulin Ratio (1-3) Urine Color Yellow Urine Appearance Clear Urine pH 5.0 (5-9) Ur Specific [place] 1.012 (1.010-1.030) Urine Protein Negative (Negative) Urine Ketones Negative (Negative) Urine Blood Negative (Negative) Urine Nitrate Negative (Negative) Urine Bilirubin Negative (Negative) Urine Urobilinogen Negative (Negative) Ur Leukocyte Esterase Negative (Negative) Urine Glucose 1+(50 mg/dl) A (Negative) Microbiology and Other Data: Microbiology 09/27/17 23:48 Nasal Screen MRSA (PCR)(BATSHEVA) - Final Nasal Mrsa Not Detected Assess/Plan/Problems-Billing Assessment: 52 yo prisoner from [place] with h/o CVAx4 [place] [facility] [place] CAD (last cath pt remembers with stent in 2005), CKD stage3, DM2(on insulin), dementia presents after a fall with left femur fx. - Patient Problems (1) Fracture of femoral neck, left Comment: Planned to go to OR in AM. According to ACS calculator pt has 17% risk of any major surgical complications , but no modifiable factors have been determined. Pt is optimized for the anticipated surgery and medically at his baseline. (2) CAD (coronary artery disease) Comment: With history of [place] and HF. EF noted to br 55% in 07/2017 Continue metoprolol, Isosorbide dinitrate. ASA, Plavix, Lasix , aldactone held prior to anticipated surgery. Pt appears euvolemic. Recommend telem post op (3) CVA (cerebral vascular accident) Comment: 4 CVAs in the past -last one in 07/2017 Holding ASA/Plavix preop. Pt has baseline left sided weakness and left facila droop (4) Dementia Comment: On aricept Unclear etiology/type? Appears appropriate and oriented x 3 at this time (5) Diabetes mellitus Comment: A1c = 8.6 in 07/[address] pt on Lantus 10 U prior to surgery (6) BPH (benign prostatic hyperplasia) Comment: - On flomax (7) CKD stage 3 due to type 2 diabetes mellitus Comment: creat at baseline (8) DVT prophylaxis Comment: heparin held preop. cont SCD's Status and Disposition: inpatient
[2017-09-28] MEDS: Morphine VIAL* 4 MG/ML VIAL (1 ml vial) IV PRN (16:25)
--- NOTE | 2017-09-28 16:53 | PN ---
Progress Note - Progress Note Date of Service: 09/28/17 SOAP: Subjective: 52 yo male, [facility] sustaining a left femoral neck fx. ALready had been wheelchair bound due to strokes and left sided weakness, but had been independent with transfers. Currently c/o back pain as well due to inability to move and position self. Dr. Marcus had spoken with him earlier about the significant surgical risk given his comorbidities and he has questions about operative and non-opertive tx Objective: Today he lying almost flat, where yesterday he was sitting up. Left LE still shortened and externally rotated Assessment: Displaced left femoral neck fx Plan: We discussed non-op tx, plus risks of that, specifically DVT and PE, as already he is not moving as much due to pain. But I did tell him that the pain does decrease such that he should be able to do transfers independently in a few weeks again. The leg will be shortened and weak, but he alreay was not ambulating, and that would not change. He still is interested in having something done to fix the pain, as that is the biggest issue. He is on for a left hip hemiarthroplasty tomorrow AM. I did tell him he can back out of surgery anytime beforehand, as the risk is not insubstantial, but since it is non-modifiable, waiting longer will not improve the risk.
[2017-09-28] MEDS ORDERED: Insulin GLARGINE(*) 1 UNITS UNIT SUBCUT SCH (21:00)
[2017-09-28] MEDS: CMC:Rosuvastatin (NF) 20 MG TAB PO SCH (21:05)
[2017-09-28] MEDS: Cholecalciferol TAB* 1000 UNITS PO SCH (21:05)
[2017-09-28] MEDS: Tamsulosin CAP* 0.4 MG PO SCH (21:05)
[2017-09-28] MEDS: Sertraline* 25 MG TAB PO SCH (21:06)
[2017-09-28] MEDS: Metoprolol Succinate XL TAB* 25 MG PO SCH (21:06)
[2017-09-28] MEDS: Donepezil TAB* 5 MG PO SCH (21:06)
[2017-09-29] MEDS: oxyCODONE/Acetamin 5/325 MG* TAB PO PRN ×4 (00:06→20:45)
[2017-09-29] MEDS: Morphine VIAL* 4 MG/ML VIAL (1 ml vial) IV PRN (02:25)
[2017-09-29 05:46] LABS: ABS Basophils 0.1 10^3/ul (0-0.2); ABS Eosinophils 1.2 10^3/ul (0-0.6); ABS Lymphocytes 1.4 10^3/ul (1.0-4.8); ABS Monocytes 1.2 10^3/ul (0-0.8); ABS Neutrophils 8.6 10^3/ul (1.5-7.7); ABS Nucleated RBC 0 10^3/ul; Eosinophil % 9.2 % (0-6); Hematocrit 36 % (42-52); Hemoglobin 12.2 g/dl (14.0-18.0); Lymphocyte % 11.3 % (25-47); Mean Corpuscular HGB Conc 34 g/dl (31-36); Mean Corpuscular Hemoglobin 31 pg (27-31); Mean Corpuscular Volume 90 fL (80-94); Nucleated Red Blood Cells % 0; Platelet Count 249 10^3/ul (150-450); Red Blood Count 3.99 10^6/ul (4.0-5.4); Red Cell Distribution Width 14 % (10.5-15); White Blood Count 12.6 10^3/ul (3.5-10.8)
[2017-09-29] MEDS ORDERED: diPHENhydraMINE PO* 50 MG PO ONE (05:46)
[2017-09-29] MEDS ORDERED: Levalbuterol 0.63MG/3ML NEB* UNIT OF USE INH ONE (06:00)
[2017-09-29] MEDS ORDERED: Gabapentin CAP(*) 300 MG PO ONE (06:00)
[2017-09-29] MEDS ORDERED: Midazolam* 1 MG/ML 5 ML VIAL (5 MG) ONE (07:48)
[2017-09-29] MEDS ORDERED: fentaNYL* 50 MCG/ML 2 ML VIAL (100 MCG VIAL) ONE ×3 (07:48→09:18)
[2017-09-29] MEDS: Mometasone 220 MCG MDI INH SCH (07:59)
[2017-09-29] MEDS ORDERED: ceFAZolin 2 GM PREMIX (*) 2 GM/50 ML BAG IVPB ONE (08:19)
[2017-09-29] MEDS ORDERED: Lidocaine 1% MPF wEPI 200,000* 30 ML SDV ONE (09:02)
[2017-09-29] MEDS ORDERED: Bupivacaine 0.25% SDV* 30 ML ONE (09:02)
[2017-09-29] MEDS ORDERED: KETAMINE HCL* 50 MG/ML 10 ML VIAL ONE (09:18)
[2017-09-29] MEDS: Insulin LISPRO* 1 UNITS UNIT SUBCUT SCH ×4 (09:38→21:03)
[2017-09-29] MEDS: Gemfibrozil TAB* 600 MG PO SCH ×2 (09:39→20:44)
[2017-09-29] MEDS: Docusate CAP* 100 MG PO SCH (09:39)
[2017-09-29] MEDS: Cetirizine* 10 MG TAB PO SCH (09:39)
[2017-09-29] MEDS: Famotidine TAB* 20 MG PO SCH ×2 (09:39→20:44)
[2017-09-29] MEDS: Isosorbide Dinitrate TAB* 10 MG PO SCH ×2 (09:39→20:44)
[2017-09-29] MEDS ORDERED: Ketorolac INJ* 30 MG/ML 1 ML VIAL ONE (09:49)
[2017-09-29] MEDS ORDERED: DiMENhydriNATE IV* 50 MG/ML VIAL ONE (09:49)
[2017-09-29] MEDS ORDERED: Lidocaine 2% PF * 5 ML VIAL ONE (09:49)
[2017-09-29] MEDS ORDERED: Propofol* 10 MG/ML 20 ML BTL IV PUSH ONE (09:49)
[2017-09-29] MEDS ORDERED: Dexamethasone IV* 4 MG/ML 1 ML (4 MG) ONE (09:49)
[2017-09-29] MEDS ORDERED: Succinylcholine* 20 MG/ML 10 ML VIAL ONE (09:49)
[2017-09-29] MEDS ORDERED: oxyCODONE/Acetamin 5/325 MG* TAB PO PRN (09:56)
[2017-09-29] MEDS ORDERED: Levalbuterol 0.63MG/3ML NEB* UNIT OF USE INH PRN (09:56)
[2017-09-29] MEDS ORDERED: HYDROmorphone INJ* 1 MG/ML CARPUJECT SYRINGE IV PRN (09:56)
[2017-09-29] MEDS ORDERED: Naloxone* 0.4 MG/ML 1 ML VIAL IV PRN (09:56)
[2017-09-29] MEDS ORDERED: Insulin REGULAR(*) 1 UNITS UNIT SUBCUT ONE (10:11)
[2017-09-29] MEDS ORDERED: Metoprolol Tartrate IV* 1 MG/ML 5 ML VIAL ONE (10:16)
[2017-09-29] MEDS ORDERED: HYDROmorphone INJ* 2 MG/ML CARPUJECT SYRINGE ONE (11:30)
--- NOTE | 2017-09-29 12:11 | RAD ---
HISTORY: Postop hip arthroplasty COMPARISONS: CT dated September 27, 2017 VIEWS: 1, Single frontal view of the pelvis FINDINGS: BONE DENSITY: Normal. BONES: The patient is status post left hip jared-arthroplasty. There is no hardware failure or osteolysis. JOINTS: The patient is status post left hip arthroplasty ALIGNMENT: There is no dislocation. SOFT TISSUES: Unremarkable. OTHER FINDINGS: None. IMPRESSION: STATUS POST LEFT HIP ARTHROPLASTY
--- NOTE | 2017-09-29 12:50 | PN ---
Subjective Date of Service: 09/29/17 Interval History: Pt seen post op today. doing well, no complaints Objective Active Medications: Acetaminophen (Tylenol Tab*) 650 mg PO TID PRN PRN Reason: PAIN Cetirizine HCl (Zyrtec*) 10 mg PO DAILY [facility] PRN Reason: Protocol Last Admin: 09/29/17 09:39 Dose: Not Given Cholecalciferol (Vitamin D Tab*) 5,000 units PO BEDTIME [facility] Last Admin: 09/28/17 21:05 Dose: 5,000 units Cyclobenzaprine HCl (Flexeril Tab*) 10 mg PO TID PRN PRN Reason: muscle spasms Last Admin: 09/28/17 21:22 Dose: 10 mg Dextrose (D50w Syringe 50 Ml*) 12.5 gm IV PUSH .FOR FS < 60 - SS PRN PRN Reason: FS < 60 Docusate Sodium (Colace Cap*) 200 mg PO DAILY [facility] Last Admin: 09/29/17 09:39 Dose: Not Given Donepezil HCl (Aricept Tab*) 5 mg PO BEDTIME [facility] Last Admin: 09/28/17 21:06 Dose: 5 mg Famotidine (Pepcid Tab*) 20 mg PO BID [facility] PRN Reason: Protocol Last Admin: 09/29/17 09:39 Dose: Not Given Gemfibrozil (Lopid Tab*) 600 mg PO BID [facility] Last Admin: 09/29/17 09:39 Dose: Not Given Hydromorphone HCl (Dilaudid Injic*) 0.2 mg IV Q5M PRN PRN Reason: PAIN - SEVERE Last Admin: 09/29/17 11:34 Dose: 0.2 mg Lactated Ringer's (Lactated Ringers 1000 Ml Bag*) 1,000 mls @ 125 mls/hr IV PER RATE [facility] Last Admin: 09/29/17 05:43 Dose: 125 mls/hr Insulin Glargine (Lantus(*)) 10 units SUBCUT Q24H [facility] Last Admin: 09/28/17 21:23 Dose: 10 units Insulin Human Lispro (Humalog*) 0 units SUBCUT ACHS [facility] PRN Reason: Protocol Last Admin: 09/29/17 09:38 Dose: Not Given Insulin Human Regular (Insulin Regular(*)) 6 units SUBCUT ONCE ONE Stop: 09/29/17 10:12 Isosorbide Dinitrate (Isordil Tab*) 10 mg PO BID [facility] Last Admin: 09/29/17 09:39 Dose: Not Given Levalbuterol HCl (Xopenex 0.63mg/3ml Neb*) 0.63 mg INH ONCE PRN PRN Reason: SOB/WHEEZING Magnesium Hydroxide (Milk Of Magnesia Liq*) 30 ml PO Q6H PRN PRN Reason: CONSTIPATION Metoprolol Succinate (Toprol Xl Tab*) 25 mg PO BEDTIME [facility] Last Admin: 09/28/17 21:06 Dose: 25 mg Mometasone Furoate (Asmanex 220 Mcg Mdi *) 2 puff INH DAILY [facility] Last Admin: 09/29/17 07:59 Dose: Not Given Morphine Sulfate (Morphine Vial*) 4 mg IV Q4H PRN PRN Reason: PAIN - BREAKTHROUGH Last Admin: 09/29/17 02:25 Dose: 4 mg Naloxone HCl (Narcan*) 0.08 mg IV Q2M PRN PRN Reason: severe induced resp depression Stop: 09/30/17 09:55 Oxycodone/Acetaminophen (Percocet 5/325 Tab*) 2 tab PO Q4H PRN PRN Reason: PAIN - MODERATE TO SEVERE Last Admin: 09/29/17 04:21 Dose: 2 tab Oxycodone/Acetaminophen (Percocet 5/325 Tab*) 1 tab PO Q4H PRN PRN Reason: PAIN - MILD TO MODERATE Oxycodone/Acetaminophen (Percocet 5/325 Tab*) 1 tab PO ONCE PRN PRN Reason: PAIN - MODERATE Rosuvastatin Calcium (Crestor (Nf)) 20 mg PO BEDTIME [facility] Last Admin: 09/28/17 21:05 Dose: 20 mg Sertraline HCl (Zoloft*) 75 mg PO BEDTIME [facility] Last Admin: 09/28/17 21:06 Dose: 75 mg Tamsulosin HCl (Flomax Cap*) 0.4 mg PO BEDTIME [facility] Last Admin: 09/28/17 21:05 Dose: 0.4 mg Vital Signs - 8 hr 09/29/17 09/29/17 09/29/17 06:14 06:15 07:35 Temperature 98.2 F Pulse Rate 76 Respiratory 16 16 16 Rate Blood Pressure 127/73 (mmHg) O2 Sat by Pulse 93 Oximetry 09/29/17 09/29/17 09/29/17 07:37 10:37 10:40 Temperature 97.3 F Pulse Rate 84 78 Respiratory 16 13 Rate Blood Pressure 111/80 128/94 (mmHg) O2 Sat by Pulse 91 95 Oximetry 09/29/17 09/29/17 09/29/17 10:45 10:47 10:50 Temperature Pulse Rate 78 77 77 Respiratory 14 13 13 Rate Blood Pressure 138/99 128/80 (mmHg) O2 Sat by Pulse 96 96 95 Oximetry 09/29/17 09/29/17 09/29/17 10:55 11:00 11:05 Temperature 98.1 F Pulse Rate 78 77 78 Respiratory 14 13 13 Rate Blood Pressure 146/86 133/80 121/93 (mmHg) O2 Sat by Pulse 93 94 94 Oximetry 09/29/17 09/29/17 09/29/17 11:10 11:15 11:20 Temperature Pulse Rate 76 77 84 Respiratory 13 13 14 Rate Blood Pressure 128/79 111/77 (mmHg) O2 Sat by Pulse 98 94 91 Oximetry 09/29/17 09/29/17 09/29/17 11:25 11:30 11:34 Temperature Pulse Rate 82 78 Respiratory 14 13 18 Rate Blood Pressure 123/93 (mmHg) O2 Sat by Pulse 94 93 Oximetry 09/29/17 09/29/17 09/29/17 11:35 11:40 11:45 Temperature Pulse Rate 76 79 78 Respiratory 12 13 13 Rate Blood Pressure 118/86 119/80 118/85 (mmHg) O2 Sat by Pulse 94 92 88 Oximetry 09/29/17 11:50 Temperature 98.1 F Pulse Rate 82 Respiratory 16 Rate Blood Pressure (mmHg) O2 Sat by Pulse 92 Oximetry Oxygen Devices in Use Now: None Appearance: 52 yo M in nAD, aAOx3 Eyes: No Scleral Icterus, PERRLA Ears/Nose/Mouth/Throat: NL Teeth, Lips, Gums, Mucous Membranes Moist Neck: NL Appearance and Movements; NL JVP, Trachea Midline Respiratory: Symmetrical Chest Expansion and Respiratory Effort, Clear to Auscultation Cardiovascular: NL Sounds; No Murmurs; No JVD Abdominal: NL Sounds; No Tenderness; No Distention Lymphatic: No Cervical Adenopathy Extremities: No Edema, No Clubbing, Cyanosis Skin: No Rash or Ulcers, No Nodules or Sclerosis, - - left post op hip dressings not removed Neurological: Alert and Oriented x 3, - - left facial droop, left arm weakness at 4+/5 -unchanged Result Diagrams: 09/29/17 05:05 09/29/17 05:05 Additional Lab and Data: Lab Results 09/27/17 09/27/17 09/27/17 Range/Units 11:49 11:49 11:49 WBC 13.4 H (3.5-10.8) 10^3/ul RBC 4.36 (4.0-5.4) 10^6/ul Hgb 13.2 L (14.0-18.0) g/dl Hct 39 L (42-52) % MCV 90 (80-94) fL MCH 30 (27-31) pg MCHC 34 (31-36) g/dl RDW 14 (10.5-15) % Plt Count 277 (150-450) 10^3/ul MPV 7.9 (7.4-10.4) um3 Neut % (Auto) 76.2 (38-83) % Lymph % (Auto) 9.6 L (25-47) % [place] % (Auto) 9.3 H (0-7) % Eos % (Auto) 4.2 (0-6) % Baso % (Auto) 0.7 (0-2) % Absolute Neuts (auto) 10.2 H (1.5-7.7) 10^3/ul Absolute Lymphs (auto) 1.3 (1.0-4.8) 10^3/ul Absolute Monos (auto) 1.2 H (0-0.8) 10^3/ul Absolute Eos (auto) 0.6 (0-0.6) 10^3/ul Absolute Basos (auto) 0.1 (0-0.2) 10^3/ul Absolute Nucleated RBC 0 10^3/ul Nucleated RBC % 0.1 Sodium 136 L (139-145) mmol/L Potassium 4.8 (3.5-5.0) mmol/L Chloride 109 (101-111) mmol/L Carbon Dioxide 20 L (22-32) mmol/L Anion Gap 7 (2-11) mmol/L BUN 32 H (6-24) mg/dL Creatinine 1.63 H (0.67-1.17) mg/dL Est GFR ( Amer) 57.4 (>60) Est GFR (Non-Af Amer) 44.7 (>60) BUN/Creatinine Ratio 19.6 (8-20) Glucose 147 H (70-100) mg/dL Lactic Acid 1.5 (0.5-2.0) mmol/L Calcium 9.9 (8.6-10.3) mg/dL Total Bilirubin 0.50 (0.2-1.0) mg/dL AST 20 (13-39) U/L ALT 20 (7-52) U/L Alkaline Phosphatase 105 H (34-104) U/L CK-MB (CK-2) 4.3 (0.6-6.3) ng/mL Troponin I 0.01 (<0.04) ng/mL Total Protein 7.9 (6.4-8.9) g/dL Albumin 4.4 (3.2-5.2) g/dL Globulin 3.5 (2-4) g/dL Albumin/Globulin Ratio 1.3 (1-3) Urine Color Urine Appearance Urine pH (5-9) Ur Specific [place] (1.010-1.030) Urine Protein (Negative) Urine Ketones (Negative) Urine Blood (Negative) Urine Nitrate (Negative) Urine Bilirubin (Negative) Urine Urobilinogen (Negative) Ur Leukocyte Esterase (Negative) Urine Glucose (Negative) /18/18 Range/Units 15:27 WBC (3.5-10.8) 10^3/ul RBC (4.0-5.4) 10^6/ul Hgb (14.0-18.0) g/dl Hct (42-52) % MCV (80-94) fL MCH (27-31) pg MCHC (31-36) g/dl RDW (10.5-15) % Plt Count (150-450) 10^3/ul MPV (7.4-10.4) um3 Neut % (Auto) (38-83) % Lymph % (Auto) (25-47) % [place] % (Auto) (0-7) % Eos % (Auto) (0-6) % Baso % (Auto) (0-2) % Absolute Neuts (auto) (1.5-7.7) 10^3/ul Absolute Lymphs (auto) (1.0-4.8) 10^3/ul Absolute Monos (auto) (0-0.8) 10^3/ul Absolute Eos (auto) (0-0.6) 10^3/ul Absolute Basos (auto) (0-0.2) 10^3/ul Absolute Nucleated RBC 10^3/ul Nucleated RBC % Sodium (139-145) mmol/L Potassium (3.5-5.0) mmol/L Chloride (101-111) mmol/L Carbon Dioxide (22-32) mmol/L Anion Gap (2-11) mmol/L BUN (6-24) mg/dL Creatinine (0.67-1.17) mg/dL Est GFR ( Amer) (>60) Est GFR (Non-Af Amer) (>60) BUN/Creatinine Ratio (8-20) Glucose (70-100) mg/dL Lactic Acid (0.5-2.0) mmol/L Calcium (8.6-10.3) mg/dL Total Bilirubin (0.2-1.0) mg/dL AST (13-39) U/L ALT (7-52) U/L Alkaline Phosphatase (34-104) U/L CK-MB (CK-2) (0.6-6.3) ng/mL Troponin I (<0.04) ng/mL Total Protein (6.4-8.9) g/dL Albumin (3.2-5.2) g/dL Globulin (2-4) g/dL Albumin/Globulin Ratio (1-3) Urine Color Yellow Urine Appearance Clear Urine pH 5.0 (5-9) Ur Specific [place] 1.012 (1.010-1.030) Urine Protein Negative (Negative) Urine Ketones Negative (Negative) Urine Blood Negative (Negative) Urine Nitrate Negative (Negative) Urine Bilirubin Negative (Negative) Urine Urobilinogen Negative (Negative) Ur Leukocyte Esterase Negative (Negative) Urine Glucose 1+(50 mg/dl) A (Negative) Microbiology and Other Data: Microbiology 09/27/17 23:48 Nasal Screen MRSA (PCR)(BATSHEVA) - Final Nasal Mrsa Not Detected Assess/Plan/Problems-Billing Assessment: 52 yo prisoner from [place] with h/o CVAx4 (last one at [facility] in 07/2017), CAD (last cath pt remembers with stent in 2005), CKD stage3, DM2(on insulin), dementia presents after a fall with left femur fx. - Patient Problems (1) Fracture of femoral neck, left Comment: s/p left hip hemiarthoplasty on 09/29/17. Doing well (2) CAD (coronary artery disease) Comment: With history of IA and HF. EF noted to be 55% in 07/2017 Continue metoprolol, Isosorbide dinitrate. ASA, Plavix, Lasix , aldactone held periop. Pt appears euvolemic. (3) CVA (cerebral vascular accident) Comment: 4 CVAs in the past -last one in 07/2017 Holding ASA/Plavix preop. Pt has baseline left sided weakness and left facial droop (4) Dementia Comment: On aricept Unclear etiology/type? Appears appropriate and oriented x 3 at this time (5) Diabetes mellitus Comment: A1c = 8.6 in 07/28 will cont ISS and Lantus (6) BPH (benign prostatic hyperplasia) Comment: - On flomax (7) CKD stage 3 due to type 2 diabetes mellitus Comment: creat at baseline (8) DVT prophylaxis Comment: heparin will be restarted today Status and Disposition: inpatient
[2017-09-29] MEDS ORDERED: Ondansetron INJ* 2 MG/ML VIAL IV PRN (13:35)
[2017-09-29 14:10] LABS: Hematocrit 35 % (42-52); Hemoglobin 11.5 g/dl (14.0-18.0); Mean Corpuscular HGB Conc 33 g/dl (31-36); Mean Corpuscular Hemoglobin 30 pg (27-31); Mean Corpuscular Volume 93 fL (80-94); Red Blood Count 3.78 10^6/ul (4.0-5.4); Red Cell Distribution Width 14 % (10.5-15); White Blood Count 15.9 10^3/ul (3.5-10.8)
[2017-09-29 14:14] LABS: INR 1.1 (0.77-1.02)
[2017-09-29 14:19] LABS: EGFR Non-African American 46.6 (>60)
[2017-09-29 14:36] LABS: ABS Basophils 0.1 10^3/ul (0-0.2); ABS Eosinophils 0.1 10^3/ul (0-0.6); ABS Lymphocytes 0.6 10^3/ul (1.0-4.8); ABS Monocytes 0.8 10^3/ul (0-0.8); ABS Neutrophils 14.4 10^3/ul (1.5-7.7); ABS Nucleated RBC 0 10^3/ul; Eosinophil % 0.6 % (0-6); Lymphocyte % 3.7 % (25-47); Nucleated Red Blood Cells % 0; Platelet Count 227 10^3/ul (150-450)
[2017-09-29] MEDS ORDERED: Warfarin TAB(*) 10 MG PO ONE (17:00)
[2017-09-29] MEDS: ceFAZolin 1 GM in Dextrose (*) 1 GM/50 ML BAG IVPB SCH (17:51)
--- NOTE | 2017-09-29 18:47 | OP ---
DATE OF OPERATION: 09/29/17 - ROOM #[id number] DATE OF : 65 ATTENDING SURGEON: Kevyn Spangler MD BOILER ENGINEER: ZEESHAN Nixon ANESTHESIA: General endotracheal. PRE-OP DIAGNOSIS: Displaced left femoral neck fracture. POST-OP DIAGNOSIS: Displaced left femoral neck fracture. OPERATIVE PROCEDURE: Left hip hemiarthroplasty. ESTIMATED BLOOD LOSS: 200 cc. COMPLICATIONS: None. HARDWARE: Nighat 12.5 reduced neck standard length M/L tape, +0 28-mm head, 52- mm bipolar shell. INDICATIONS: Mr. Soni is a 52-year-old male who had fallen on night at intermediate. The guards had helped him back into his wheelchair; but, because of pain, he was unable to transfer to his bed as he normally would have. On Saturday, he was brought to the emergency room and x-rays were taken which had found a left femoral neck fracture which was displaced. When I had seen his age, I thought we could add him on for Saturday; but, when I came to the hospital Saturday evening and reviewed his medical records, I discussed with the hospitalist that it would probably be prudent to give it 24 hours to make sure that he was medically optimized. He was further evaluated and found to have no modifiable factors. This also though, gave us another day for the Plavix to wear off as he was on Plavix and aspirin. I discussed with him that there were significant risks of surgery considering his medical history but in addition to those risks were the intrinsic risks of surgery such as infection, scar formation, stiffness, DVT, pulmonary embolism, leg length discrepancy, instability, hardware failure, and continued pain. He was very interested in getting his pain improved and did wish to proceed with surgery. He had been declared medically optimized. DESCRIPTION OF PROCEDURE: The patient was brought to the OR and general endotracheal anesthesia was established. He was then transferred to the OR bed and rolled into the right lateral decubitus position. Axillary roll was placed as were the posts and he was nicely padded. Left hip area was prepped and then draped. Skin over the incision area was infiltrated using 0.25% Marcaine with 1 % lidocaine with epinephrine. A total of 50 cc of the mixture would be used. Incision was made centered over the greater trochanter and was carried down through the skin and subcutaneous fat. Small bleeders encountered were ligated using electrocautery. Fascia was eventually exposed and a sharp incision was made over the fascia. Muscle was bluntly split proximally and trochanteric bursa was taken down using electro-cautery. It was a bit oozy (due to the plavix and aspirin) and with palpation I could easily feel piriformis and a Farmer was placed under the gluteus medius/gluteus minimus, giving nice exposure to piriformis and the short external rotators. Electrocautery was then used to take down piriformis and short external rotators and a T capsulotomy was made. Fracture could easily be palpated and with opening the capsule, I was then better able to rotate the leg and the femoral portion of the fracture was presented. Cutting guide was placed and a cleanup cut was taken. Bone hook was then placed to pull the femur anteriorly and corkscrew was then placed into the femoral head. Femoral head was then mostly pulled out but he still had a strong ligamentum teres and this was sharply incised. Head slid through a 52-mm sizer and this was exactly what had been templated; I had sized him for a 52 head with a 12.5 reduced neck M/L taper. He was trialed with a 51 and 52 and I liked the fit of the 52 better as the 51 had just a tiny bit of play. Attention was turned to the proximal femur. Box osteotome was used to open the femoral canal and the canal finder was easily passed. Beginning with a 5 broach, it was progressively broached and the 11 sat easily and then the 12.5 sat snugly. He was then trailed with a +0 and a 52 head and had spectacular stability and his leg length now appeared equal. When the head was removed, the 12.5 still sat nice and snug without any loosening. Parts were called for. Hip was again copiously pulse lavaged as was the acetabulum and searched for any additional small bony pieces. Small pieces had been removed throughout the case and after these two additional sweeps, I did not feel any more pieces. 12.5 stem was nicely seated and the 0 head with the polyethylene and then the shell were all impacted sequentially on to the head. Hip was then relocated and had the same wonderful motion and stability. Capsule and short external rotators were repaired together to the posterior aspect of the greater trochanter and hip was again copiously pulse lavaged. Fascia was repaired using interrupted #1 Vicryl sutures. Last of the 3 L of pulse lavage was then used in the subcutaneous tissues. Subcutaneous tissues were reapproximated using 2-0 Vicryl, skin was closed using martina. Sterile dressing and abduction pillow were applied in the OR. The patient was rolled on to the hospital bed and was extubated in the OR and was stable on transfer to the recovery room. [id number]/[facility] #: [id number] HEALTH SYSTEMKristina
[2017-09-29] MEDS: Tamsulosin CAP* 0.4 MG PO SCH (20:43)
[2017-09-29] MEDS: Cholecalciferol TAB* 1000 UNITS PO SCH (20:43)
[2017-09-29] MEDS: Metoprolol Succinate XL TAB* 25 MG PO SCH (20:44)
[2017-09-29] MEDS: Donepezil TAB* 5 MG PO SCH (20:44)
[2017-09-29] MEDS: Sertraline* 25 MG TAB PO SCH (20:44)
[2017-09-29] MEDS: CMC:Rosuvastatin (NF) 20 MG TAB PO SCH (20:44)
[2017-09-29] MEDS ORDERED: Insulin GLARGINE(*) 1 UNITS UNIT SUBCUT SCH (21:00)
[2017-09-29] MEDS: Cyclobenzaprine TAB* 10 MG PO PRN (21:49)
[2017-09-29] MEDS ORDERED: Heparin VIAL(*) 5000 UNITS/ML VIAL (FIVE THOUSAND) SUBCUT SCH (22:00)
[2017-09-30] MEDS: ceFAZolin 1 GM in Dextrose (*) 1 GM/50 ML BAG IVPB SCH ×2 (00:46→10:12)
[2017-09-30 05:29] LABS: ABS Basophils 0.1 10^3/ul (0-0.2); ABS Eosinophils 0.4 10^3/ul (0-0.6); ABS Lymphocytes 1.6 10^3/ul (1.0-4.8); ABS Monocytes 1.3 10^3/ul (0-0.8); ABS Neutrophils 7.7 10^3/ul (1.5-7.7); ABS Nucleated RBC 0 10^3/ul; Eosinophil % 3.4 % (0-6); Hematocrit 28 % (42-52); Hemoglobin 9.6 g/dl (14.0-18.0); Lymphocyte % 14.2 % (25-47); Mean Corpuscular HGB Conc 35 g/dl (31-36); Mean Corpuscular Hemoglobin 31 pg (27-31); Mean Corpuscular Volume 90 fL (80-94); Mean Platelet Volume 8.1 um3 (7.4-10.4); Nucleated Red Blood Cells % 0; Platelet Count 207 10^3/ul (150-450); Red Cell Distribution Width 13 % (10.5-15)
[2017-09-30] MEDS: oxyCODONE/Acetamin 5/325 MG* TAB PO PRN ×4 (05:33→21:28)
[2017-09-30 05:52] LABS: EGFR Non-African American 49.9 (>60)
[2017-09-30] MEDS: Cyclobenzaprine TAB* 10 MG PO PRN ×3 (07:37→21:57)
[2017-09-30] MEDS: Mometasone 220 MCG MDI INH SCH (09:18)
--- NOTE | 2017-09-30 09:29 | PN ---
Progress Note - Progress Note Date of Service: 09/30/17 SOAP: Subjective: 52 y/o male s/p Left hemiarthroplasty by Dr. Spangler 09/29/2017. Patient overall feeling well, concerned about glucose levels. Eating well, continues to have pain. no questions re: surgery. Eager to work with PT VSS, afebrile overnight. Objective: General- Well appearing, NAD, AO SItting comfortably in chair MSK- L LE- DF/PF decreased on L, baseline for patient due to prior CVA. PT 2+ , negative homans sign surgical dressing intact, no erythema, induration around site. no sensation distal to knee b/l, patient states baseline. Vital Signs Temp 99.2 F 09/30/17 03:50 Pulse 75 09/30/17 09:18 Resp 16 09/30/17 09:18 BP 115/61 09/30/17 03:50 Pulse Ox 96 09/30/17 09:18 Intake & Output 09/29/17 09/30/17 09/30/17 18:59 06:59 18:59 Intake Total 1410 2800 Output Total 650 2050 Balance 760 750 Intake: IV Fluids 700 1960 LR 700 1960 Oral 710 840 Output: Mayo 650 0 Assessment: Stable 52 y/o male s/p Left hemiarthroplasty by Dr. Spangler 09/29/2017. Plan: - DVT prophylaxis- Coumadin and ASA x 4 weeks, than resume Plavix - Continue PT/ OT - Follow up with Dr. Spangler within 3-4 weeks post-op - H&H - decreased but stable - post-op IV ABX - Running - Full Weight bearing - LIkely D/C within 24-48 hours Acetaminophen (Tylenol Tab*) 650 mg PO TID PRN PRN Reason: PAIN Cetirizine HCl (Zyrtec*) 10 mg PO DAILY [facility] PRN Reason: Protocol Last Admin: 09/29/17 09:39 Dose: Not Given Cholecalciferol (Vitamin D Tab*) 5,000 units PO BEDTIME [facility] Last Admin: 09/29/17 20:43 Dose: 5,000 units Cyclobenzaprine HCl (Flexeril Tab*) 10 mg PO TID PRN PRN Reason: muscle spasms Last Admin: 09/30/17 07:37 Dose: 10 mg Dextrose (D50w Syringe 50 Ml*) 12.5 gm IV PUSH .FOR FS < 60 - SS PRN PRN Reason: FS < 60 Docusate Sodium (Colace Cap*) 200 mg PO DAILY [facility] Last Admin: 09/29/17 09:39 Dose: Not Given Donepezil HCl (Aricept Tab*) 5 mg PO BEDTIME [facility] Last Admin: 09/29/17 20:44 Dose: 5 mg Famotidine (Pepcid Tab*) 20 mg PO BID [facility] PRN Reason: Protocol Last Admin: 09/29/17 20:44 Dose: 20 mg Gemfibrozil (Lopid Tab*) 600 mg PO BID [facility] Last Admin: 09/29/17 20:44 Dose: 600 mg Heparin Sodium (Porcine) (Heparin Vial(*)) 5,000 units SUBCUT Q12HR [facility] Stop: 09/30/17 21:01 Insulin Glargine (Lantus(*)) 20 units SUBCUT Q24H [facility] Last Admin: 09/29/17 20:48 Dose: 20 unit Insulin Human Lispro (Humalog*) 0 units SUBCUT ACHS [facility] PRN Reason: Protocol Last Admin: 09/29/17 21:03 Dose: 12 units Isosorbide Dinitrate (Isordil Tab*) 10 mg PO BID [facility] Last Admin: 09/29/17 20:44 Dose: 10 mg Magnesium Hydroxide (Milk Of Magnesia Liq*) 30 ml PO Q6H PRN PRN Reason: CONSTIPATION Metoprolol Succinate (Toprol Xl Tab*) 25 mg PO BEDTIME [facility] Last Admin: 09/29/17 20:44 Dose: 25 mg Mometasone Furoate (Asmanex 220 Mcg Mdi *) 2 puff INH DAILY [facility] Last Admin: 09/30/17 09:18 Dose: 2 puff Morphine Sulfate (Morphine Vial*) 4 mg IV Q4H PRN PRN Reason: PAIN - BREAKTHROUGH Last Admin: 09/29/17 02:25 Dose: 4 mg Ondansetron HCl (Zofran Inj*) 4 mg IV Q6H PRN PRN Reason: NAUSEA/VOMITING Oxycodone/Acetaminophen (Percocet 5/325 Tab*) 2 tab PO Q4H PRN PRN Reason: PAIN - MODERATE TO SEVERE Last Admin: 09/30/17 05:33 Dose: 2 tab Oxycodone/Acetaminophen (Percocet 5/325 Tab*) 1 tab PO Q4H PRN PRN Reason: PAIN - MILD TO MODERATE Pharmacy Profile Note (Coumadin Daily Reminder*) 1 note FOLLOW UP 1700 [facility] Last Admin: 09/29/17 17:54 Dose: 1 note Rosuvastatin Calcium (Crestor (Nf)) 20 mg PO BEDTIME [facility] Last Admin: 09/29/17 20:44 Dose: 20 mg Sertraline HCl (Zoloft*) 75 mg PO BEDTIME [facility] Last Admin: 09/29/17 20:44 Dose: 75 mg Tamsulosin HCl (Flomax Cap*) 0.4 mg PO BEDTIME [facility] Last Admin: 09/29/17 20:43 Dose: 0.4 mg Laboratory Results - last 24 hr 09/29/17 09/29/17 09/29/17 08:16 10:47 12:52 WBC RBC Hgb Hct MCV MCH MCHC RDW Plt Count MPV Neut % (Auto) Lymph % (Auto) [place] % (Auto) Eos % (Auto) Baso % (Auto) Absolute Neuts (auto) Absolute Lymphs (auto) Absolute Monos (auto) Absolute Eos (auto) Absolute Basos (auto) Absolute Nucleated RBC Nucleated RBC % INR (Anticoag Therapy) APTT Sodium Potassium Chloride Carbon Dioxide Anion Gap BUN Creatinine Est GFR ( Amer) Est GFR (Non-Af Amer) BUN/Creatinine Ratio Glucose POC Glucose (mg/dL) 253 H 244 H 284 H Calcium 09/29/17 09/29/17 09/29/17 13:56 13:56 13:56 WBC 15.9 H RBC 3.78 L Hgb 11.5 L Hct 35 L MCV 93 MCH 30 MCHC 33 RDW 14 Plt Count 227 MPV 8.0 Neut % (Auto) 90.6 H Lymph % (Auto) 3.7 L [place] % (Auto) 4.8 Eos % (Auto) 0.6 Baso % (Auto) 0.3 Absolute Neuts (auto) 14.4 H Absolute Lymphs (auto) 0.6 L Absolute Monos (auto) 0.8 Absolute Eos (auto) 0.1 Absolute Basos (auto) 0.1 Absolute Nucleated RBC 0 Nucleated RBC % 0 INR (Anticoag Therapy) 1.10 H APTT 27.7 Sodium Potassium Chloride Carbon Dioxide Anion Gap BUN 30 H Creatinine 1.57 H Est GFR ( Amer) 60.0 Est GFR (Non-Af Amer) 46.6 BUN/Creatinine Ratio Glucose POC Glucose (mg/dL) Calcium 09/29/17 09/29/17 09/30/17 17:10 20:52 04:57 WBC 11.0 H RBC 3.10 L Hgb 9.6 L Hct 28 L MCV 90 MCH 31 MCHC 35 RDW 13 Plt Count 207 MPV 8.1 Neut % (Auto) 70.1 Lymph % (Auto) 14.2 L [place] % (Auto) 11.8 H Eos % (Auto) 3.4 Baso % (Auto) 0.5 Absolute Neuts (auto) 7.7 Absolute Lymphs (auto) 1.6 Absolute Monos (auto) 1.3 H Absolute Eos (auto) 0.4 Absolute Basos (auto) 0.1 Absolute Nucleated RBC 0 Nucleated RBC % 0 INR (Anticoag Therapy) APTT Sodium Potassium Chloride Carbon Dioxide Anion Gap BUN Creatinine Est GFR ( Amer) Est GFR (Non-Af Amer) BUN/Creatinine Ratio Glucose POC Glucose (mg/dL) 390 H 325 H Calcium 09/30/17 09/30/17 04:57 07:39 WBC RBC Hgb Hct MCV MCH MCHC RDW Plt Count MPV Neut % (Auto) Lymph % (Auto) [place] % (Auto) Eos % (Auto) Baso % (Auto) Absolute Neuts (auto) Absolute Lymphs (auto) Absolute Monos (auto) Absolute Eos (auto) Absolute Basos (auto) Absolute Nucleated RBC Nucleated RBC % INR (Anticoag Therapy) APTT Sodium 135 L Potassium 4.1 Chloride 106 Carbon Dioxide 22 Anion Gap 7 BUN 31 H Creatinine 1.48 H Est GFR ( Amer) 64.2 Est GFR (Non-Af Amer) 49.9 BUN/Creatinine Ratio 20.9 H Glucose 217 H POC Glucose (mg/dL) 208 H Calcium 8.3 L
[2017-09-30] MEDS: Famotidine TAB* 20 MG PO SCH ×2 (10:00→21:24)
[2017-09-30] MEDS: Gemfibrozil TAB* 600 MG PO SCH ×2 (10:00→21:24)
[2017-09-30] MEDS: Cetirizine* 10 MG TAB PO SCH (10:00)
[2017-09-30] MEDS: Isosorbide Dinitrate TAB* 10 MG PO SCH ×2 (10:00→21:25)
[2017-09-30] MEDS: Docusate CAP* 100 MG PO SCH (10:00)
[2017-09-30] MEDS: Insulin LISPRO* 1 UNITS UNIT SUBCUT SCH ×4 (10:04→21:32)
[2017-09-30] MEDS: Heparin VIAL(*) 5000 UNITS/ML VIAL (FIVE THOUSAND) SUBCUT SCH ×2 (10:06→21:33)
--- NOTE | 2017-09-30 12:18 | PN ---
Subjective Date of Service: 09/30/17 Interval History: pt feels well. Requests to be placed back on the insulin he took at [facility]. Still very vaque about is baseline mobility. At times he notes that he uses a wheelchair most of the time, but then he also mentions that he walks without support till he gets dizzy and then he stops Objective Active Medications: Acetaminophen (Tylenol Tab*) 650 mg PO TID PRN PRN Reason: PAIN Cetirizine HCl (Zyrtec*) 10 mg PO DAILY [facility] PRN Reason: Protocol Last Admin: 09/30/17 10:00 Dose: 10 mg Cholecalciferol (Vitamin D Tab*) 5,000 units PO BEDTIME [facility] Last Admin: 09/29/17 20:43 Dose: 5,000 units Cyclobenzaprine HCl (Flexeril Tab*) 10 mg PO TID PRN PRN Reason: muscle spasms Last Admin: 09/30/17 07:37 Dose: 10 mg Dextrose (D50w Syringe 50 Ml*) 12.5 gm IV PUSH .FOR FS < 60 - SS PRN PRN Reason: FS < 60 Docusate Sodium (Colace Cap*) 200 mg PO DAILY [facility] Last Admin: 09/30/17 10:00 Dose: 200 mg Donepezil HCl (Aricept Tab*) 5 mg PO BEDTIME [facility] Last Admin: 09/29/17 20:44 Dose: 5 mg Famotidine (Pepcid Tab*) 20 mg PO BID [facility] PRN Reason: Protocol Last Admin: 09/30/17 10:00 Dose: 20 mg Furosemide (Lasix Tab*) 20 mg PO QAM [facility] Gemfibrozil (Lopid Tab*) 600 mg PO BID [facility] Last Admin: 09/30/17 10:00 Dose: 600 mg Heparin Sodium (Porcine) (Heparin Vial(*)) 5,000 units SUBCUT Q12HR [facility] Stop: 09/30/17 21:01 Last Admin: 09/30/17 10:06 Dose: 5,000 units Insulin Glargine (Lantus(*)) 40 units SUBCUT BID [facility] Insulin Human Lispro (Humalog*) 0 units SUBCUT ACHS [facility] PRN Reason: Protocol Last Admin: 09/30/17 10:04 Dose: 6 units Isosorbide Dinitrate (Isordil Tab*) 10 mg PO BID [facility] Last Admin: 09/30/17 10:00 Dose: 10 mg Magnesium Hydroxide (Milk Of Magnesia Liq*) 30 ml PO Q6H PRN PRN Reason: CONSTIPATION Metoprolol Succinate (Toprol Xl Tab*) 25 mg PO BEDTIME [facility] Last Admin: 09/29/17 20:44 Dose: 25 mg Mometasone Furoate (Asmanex 220 Mcg Mdi *) 2 puff INH DAILY [facility] Last Admin: 09/30/17 09:18 Dose: 2 puff Morphine Sulfate (Morphine Vial*) 4 mg IV Q4H PRN PRN Reason: PAIN - BREAKTHROUGH Last Admin: 09/29/17 02:25 Dose: 4 mg Ondansetron HCl (Zofran Inj*) 4 mg IV Q6H PRN PRN Reason: NAUSEA/VOMITING Oxycodone/Acetaminophen (Percocet 5/325 Tab*) 2 tab PO Q4H PRN PRN Reason: PAIN - MODERATE TO SEVERE Last Admin: 09/30/17 10:12 Dose: 2 tab Oxycodone/Acetaminophen (Percocet 5/325 Tab*) 1 tab PO Q4H PRN PRN Reason: PAIN - MILD TO MODERATE Pharmacy Profile Note (Coumadin Daily Reminder*) 1 note FOLLOW UP 1700 [facility] Last Admin: 09/29/17 17:54 Dose: 1 note Rosuvastatin Calcium (Crestor (Nf)) 20 mg PO BEDTIME [facility] Last Admin: 09/29/17 20:44 Dose: 20 mg Sertraline HCl (Zoloft*) 75 mg PO BEDTIME [facility] Last Admin: 09/29/17 20:44 Dose: 75 mg Tamsulosin HCl (Flomax Cap*) 0.4 mg PO BEDTIME [facility] Last Admin: 09/29/17 20:43 Dose: 0.4 mg Vital Signs - 8 hr 09/30/17 09/30/17 09/30/17 05:33 07:35 07:37 Pulse Rate Respiratory 16 16 16 Rate O2 Sat by Pulse Oximetry 09/30/17 09/30/17 09/30/17 07:44 09:18 10:12 Pulse Rate 75 Respiratory 16 16 16 Rate O2 Sat by Pulse 97 96 Oximetry Oxygen Devices in Use Now: None Appearance: 52 yo M in nAD, aAOx3 Eyes: No Scleral Icterus, PERRLA Ears/Nose/Mouth/Throat: NL Teeth, Lips, Gums, Mucous Membranes Moist Neck: NL Appearance and Movements; NL JVP, Trachea Midline Respiratory: Symmetrical Chest Expansion and Respiratory Effort, Clear to Auscultation Cardiovascular: NL Sounds; No Murmurs; No JVD, RRR, No Edema Abdominal: NL Sounds; No Tenderness; No Distention, No Hepatosplenomegaly Lymphatic: No Cervical Adenopathy Extremities: No Edema, No Clubbing, Cyanosis Skin: No Rash or Ulcers, No Nodules or Sclerosis, - - left thigh post op wound covered with surgical dressings, not uncovered Neurological: Alert and Oriented x 3, - - left facial droop, left arm weakness 4 +/5, unable to raise left hip against gravity Result Diagrams: 09/30/17 04:57 09/30/17 04:57 Additional Lab and Data: Lab Results 09/27/17 09/27/17 09/27/17 Range/Units 11:49 11:49 11:49 WBC 13.4 H (3.5-10.8) 10^3/ul RBC 4.36 (4.0-5.4) 10^6/ul Hgb 13.2 L (14.0-18.0) g/dl Hct 39 L (42-52) % MCV 90 (80-94) fL MCH 30 (27-31) pg MCHC 34 (31-36) g/dl RDW 14 (10.5-15) % Plt Count 277 (150-450) 10^3/ul MPV 7.9 (7.4-10.4) um3 Neut % (Auto) 76.2 (38-83) % Lymph % (Auto) 9.6 L (25-47) % [place] % (Auto) 9.3 H (0-7) % Eos % (Auto) 4.2 (0-6) % Baso % (Auto) 0.7 (0-2) % Absolute Neuts (auto) 10.2 H (1.5-7.7) 10^3/ul Absolute Lymphs (auto) 1.3 (1.0-4.8) 10^3/ul Absolute Monos (auto) 1.2 H (0-0.8) 10^3/ul Absolute Eos (auto) 0.6 (0-0.6) 10^3/ul Absolute Basos (auto) 0.1 (0-0.2) 10^3/ul Absolute Nucleated RBC 0 10^3/ul Nucleated RBC % 0.1 Sodium 136 L (139-145) mmol/L Potassium 4.8 (3.5-5.0) mmol/L Chloride 109 (101-111) mmol/L Carbon Dioxide 20 L (22-32) mmol/L Anion Gap 7 (2-11) mmol/L BUN 32 H (6-24) mg/dL Creatinine 1.63 H (0.67-1.17) mg/dL Est GFR ( Amer) 57.4 (>60) Est GFR (Non-Af Amer) 44.7 (>60) BUN/Creatinine Ratio 19.6 (8-20) Glucose 147 H (70-100) mg/dL Lactic Acid 1.5 (0.5-2.0) mmol/L Calcium 9.9 (8.6-10.3) mg/dL Total Bilirubin 0.50 (0.2-1.0) mg/dL AST 20 (13-39) U/L ALT 20 (7-52) U/L Alkaline Phosphatase 105 H (34-104) U/L CK-MB (CK-2) 4.3 (0.6-6.3) ng/mL Troponin I 0.01 (<0.04) ng/mL Total Protein 7.9 (6.4-8.9) g/dL Albumin 4.4 (3.2-5.2) g/dL Globulin 3.5 (2-4) g/dL Albumin/Globulin Ratio 1.3 (1-3) Urine Color Urine Appearance Urine pH (5-9) Ur Specific [place] (1.010-1.030) Urine Protein (Negative) Urine Ketones (Negative) Urine Blood (Negative) Urine Nitrate (Negative) Urine Bilirubin (Negative) Urine Urobilinogen (Negative) Ur Leukocyte Esterase (Negative) Urine Glucose (Negative) 09/27/17 Range/Units 15:27 WBC (3.5-10.8) 10^3/ul RBC (4.0-5.4) 10^6/ul Hgb (14.0-18.0) g/dl Hct (42-52) % MCV (80-94) fL MCH (27-31) pg MCHC (31-36) g/dl RDW (10.5-15) % Plt Count (150-450) 10^3/ul MPV (7.4-10.4) um3 Neut % (Auto) (38-83) % Lymph % (Auto) (25-47) % [place] % (Auto) (0-7) % Eos % (Auto) (0-6) % Baso % (Auto) (0-2) % Absolute Neuts (auto) (1.5-7.7) 10^3/ul Absolute Lymphs (auto) (1.0-4.8) 10^3/ul Absolute Monos (auto) (0-0.8) 10^3/ul Absolute Eos (auto) (0-0.6) 10^3/ul Absolute Basos (auto) (0-0.2) 10^3/ul Absolute Nucleated RBC 10^3/ul Nucleated RBC % Sodium (139-145) mmol/L Potassium (3.5-5.0) mmol/L Chloride (101-111) mmol/L Carbon Dioxide (22-32) mmol/L Anion Gap (2-11) mmol/L BUN (6-24) mg/dL Creatinine (0.67-1.17) mg/dL Est GFR ( Amer) (>60) Est GFR (Non-Af Amer) (>60) BUN/Creatinine Ratio (8-20) Glucose (70-100) mg/dL Lactic Acid (0.5-2.0) mmol/L Calcium (8.6-10.3) mg/dL Total Bilirubin (0.2-1.0) mg/dL AST (13-39) U/L ALT (7-52) U/L Alkaline Phosphatase (34-104) U/L CK-MB (CK-2) (0.6-6.3) ng/mL Troponin I (<0.04) ng/mL Total Protein (6.4-8.9) g/dL Albumin (3.2-5.2) g/dL Globulin (2-4) g/dL Albumin/Globulin Ratio (1-3) Urine Color Yellow Urine Appearance Clear Urine pH 5.0 (5-9) Ur Specific [place] 1.012 (1.010-1.030) Urine Protein Negative (Negative) Urine Ketones Negative (Negative) Urine Blood Negative (Negative) Urine Nitrate Negative (Negative) Urine Bilirubin Negative (Negative) Urine Urobilinogen Negative (Negative) Ur Leukocyte Esterase Negative (Negative) Urine Glucose 1+(50 mg/dl) A (Negative) Microbiology and Other Data: Microbiology 09/27/17 23:48 Nasal Screen MRSA (PCR)(BATSHEVA) - Final Nasal Mrsa Not Detected Assess/Plan/Problems-Billing Assessment: 52 yo prisoner from [place] with h/o CVAx4 (last one at [facility] in 07/2017), CAD (last cath pt remembers with stent in 2005), CKD stage3, DM2(on insulin), dementia presents after a fall with left femur fx. - Patient Problems (1) Fracture of femoral neck, left Comment: s/p left hip hemiarthoplasty on 09/29/17. Doing well As per d/w ortho service. Pt will be placed on Coumadin and ASA, Plavix will be held when on Coumadin. Pt WBAT on post op leg (2) CAD (coronary artery disease) Comment: With history of [place] and HF. EF noted to be 55% in 07/2017 Continue metoprolol, Isosorbide dinitrate. ASA, Plavix, Lasix , aldactone held periop. Pt appears euvolemic. (3) CVA (cerebral vascular accident) Comment: 4 CVAs in the past -last one in 07/2017 Holding ASA/Plavix. Plan to restart ASA in AM if Hb stable. Plavix to be held when on Coumadin Pt has baseline left sided weakness and left facial droop (4) Dementia Comment: On aricept Unclear etiology/type? Appears appropriate and oriented x 3 at this time (5) Diabetes mellitus Comment: A1c = 8.6 in 07/28 will cont ISS and Lantus will be restarted to home dose (6) BPH (benign prostatic hyperplasia) Comment: - On flomax (7) CKD stage 3 due to type 2 diabetes mellitus Comment: creat at baseline (8) DVT prophylaxis Comment: heparin/coumadin as per ortho service Status and Disposition: inpatient
[2017-09-30 16:58] LABS: INR 2.07 (0.77-1.02)
[2017-09-30] MEDS ORDERED: Warfarin TAB(*) 2 MG PO ONE (19:00)
[2017-09-30] MEDS: Cholecalciferol TAB* 1000 UNITS PO SCH (21:21)
[2017-09-30] MEDS: Donepezil TAB* 5 MG PO SCH (21:23)
[2017-09-30] MEDS: Metoprolol Succinate XL TAB* 25 MG PO SCH (21:25)
[2017-09-30] MEDS: CMC:Rosuvastatin (NF) 20 MG TAB PO SCH (21:27)
[2017-09-30] MEDS: Sertraline* 25 MG TAB PO SCH (21:27)
[2017-09-30] MEDS: Tamsulosin CAP* 0.4 MG PO SCH (21:28)
[2017-09-30] MEDS: Insulin GLARGINE(*) 1 UNITS UNIT SUBCUT SCH (21:33)
[2017-10-01] MEDS: oxyCODONE/Acetamin 5/325 MG* TAB PO PRN ×4 (03:49→20:57)
[2017-10-01 06:05] LABS: ABS Basophils 0.1 10^3/ul (0-0.2); ABS Eosinophils 0.9 10^3/ul (0-0.6); ABS Lymphocytes 1.8 10^3/ul (1.0-4.8); ABS Monocytes 1.1 10^3/ul (0-0.8); ABS Neutrophils 6.7 10^3/ul (1.5-7.7); ABS Nucleated RBC 0 10^3/ul; Eosinophil % 8.4 % (0-6); Hematocrit 27 % (42-52); Hemoglobin 9.5 g/dl (14.0-18.0); Lymphocyte % 16.6 % (25-47); Mean Corpuscular HGB Conc 35 g/dl (31-36); Mean Corpuscular Hemoglobin 31 pg (27-31); Mean Corpuscular Volume 89 fL (80-94); Mean Platelet Volume 7.9 um3 (7.4-10.4); Nucleated Red Blood Cells % 0; Platelet Count 251 10^3/ul (150-450); Red Blood Count 3.05 10^6/ul (4.0-5.4); Red Cell Distribution Width 14 % (10.5-15); White Blood Count 10.6 10^3/ul (3.5-10.8)
[2017-10-01] MEDS: Cyclobenzaprine TAB* 10 MG PO PRN (06:16)
[2017-10-01] MEDS: Isosorbide Dinitrate TAB* 10 MG PO SCH ×2 (08:21→20:55)
[2017-10-01] MEDS: Cetirizine* 10 MG TAB PO SCH (08:21)
[2017-10-01] MEDS: Furosemide TAB* 20 MG PO SCH (08:21)
[2017-10-01] MEDS: Magnesium Hydroxide LIQ* 30 ML UDC PO PRN (08:22)
[2017-10-01] MEDS: Gemfibrozil TAB* 600 MG PO SCH ×2 (08:22→20:56)
[2017-10-01] MEDS: Famotidine TAB* 20 MG PO SCH ×2 (08:22→20:56)
[2017-10-01] MEDS: Insulin GLARGINE(*) 1 UNITS UNIT SUBCUT SCH ×2 (08:22→21:18)
[2017-10-01] MEDS: Docusate CAP* 100 MG PO SCH (08:22)
[2017-10-01] MEDS: Insulin LISPRO* 1 UNITS UNIT SUBCUT SCH ×4 (09:24→21:17)
--- NOTE | 2017-10-01 12:05 | PN ---
Progress Note - Progress Note Date of Service: 10/01/17 SOAP: Subjective: []Patient seen OOB in chair. He feels well with no LLE pain. Denies CP, SOB, dizziness. Has baseline weakness and numbness of LLE due to hx CVA. Objective: [] Vital Signs Temp 97.3 F 10/01/17 07:48 Pulse 70 10/01/17 07:48 Resp 16 10/01/17 12:29 BP 93/43 10/01/17 07:48 Pulse Ox 95 10/01/17 07:48 Intake & Output 09/30/17 10/01/17 10/01/17 18:59 06:59 18:59 Intake Total 812 240 200 Output Total 1200 875 425 Balance -388 -635 -225 Intake: IV Fluids 458 LR 458 IVPB 54 ABX - CEFAZOLIN 54 Oral 300 240 200 Output: Urine 0 50 425 Straight Cath 1200 825 Other: Estimated Void Medium # Voids 1 Vital Signs Temp 97.3 F 10/01/17 07:48 Pulse 70 10/01/17 07:48 Resp 16 10/01/17 12:29 BP 93/43 10/01/17 07:48 Pulse Ox 95 10/01/17 07:48 Intake & Output 09/30/17 10/01/17 10/01/17 18:59 06:59 18:59 Intake Total 812 240 200 Output Total 1200 875 425 Balance -388 -635 -225 Intake: IV Fluids 458 LR 458 IVPB 54 ABX - CEFAZOLIN 54 Oral 300 240 200 Output: Urine 0 50 425 Straight Cath 1200 825 Other: Estimated Void Medium # Voids 1 General: Well appearing, NAD, sitting up in chair with 2 guards present. LLE: Dressing changed. Incision CDI with well approximated wound edges, no erythema or discharge. Thigh is soft. Assessment: [] Stable 52 y/o male s/p Left hemiarthroplasty by Dr. Spangler 09/29/2017. Plan: - DVT prophylaxis- Coumadin and ASA x 4 weeks, than resume Plavix - Continue PT/ OT, hip precautions - Follow up with Dr. Spangler within 3-4 weeks post-op - Full Weight bearing - Daily dry sterile dressing change - Staple removal 10-14 days post op - Ready for DC from orthopedic standpoint, DC when medically ready
[2017-10-01 14:51] LABS: INR 2.75 (0.77-1.02)
--- NOTE | 2017-10-01 16:45 | PN ---
Subjective Date of Service: 10/01/17 Interval History: pain well controlled No complaints or questions Objective Active Medications: Acetaminophen (Tylenol Tab*) 650 mg PO TID PRN PRN Reason: PAIN Cetirizine HCl (Zyrtec*) 10 mg PO DAILY [facility] PRN Reason: Protocol Last Admin: 10/01/17 08:21 Dose: 10 mg Cholecalciferol (Vitamin D Tab*) 5,000 units PO BEDTIME [facility] Last Admin: 09/30/17 21:21 Dose: 5,000 units Cyclobenzaprine HCl (Flexeril Tab*) 10 mg PO TID PRN PRN Reason: muscle spasms Last Admin: 10/01/17 06:16 Dose: 10 mg Dextrose (D50w Syringe 50 Ml*) 12.5 gm IV PUSH .FOR FS < 60 - SS PRN PRN Reason: FS < 60 Docusate Sodium (Colace Cap*) 200 mg PO DAILY [facility] Last Admin: 10/01/17 08:22 Dose: 200 mg Donepezil HCl (Aricept Tab*) 5 mg PO BEDTIME [facility] Last Admin: 09/30/17 21:23 Dose: 5 mg Famotidine (Pepcid Tab*) 20 mg PO BID [facility] PRN Reason: Protocol Last Admin: 10/01/17 08:22 Dose: 20 mg Furosemide (Lasix Tab*) 20 mg PO QAM [facility] Last Admin: 10/01/17 08:21 Dose: 20 mg Gemfibrozil (Lopid Tab*) 600 mg PO BID [facility] Last Admin: 10/01/17 08:22 Dose: 600 mg Insulin Glargine (Lantus(*)) 40 units SUBCUT BID [facility] Last Admin: 10/01/17 08:22 Dose: 40 units Insulin Human Lispro (Humalog*) 0 units SUBCUT ACHS [facility] PRN Reason: Protocol Last Admin: 10/01/17 12:28 Dose: 9 units Isosorbide Dinitrate (Isordil Tab*) 10 mg PO BID [facility] Last Admin: 10/01/17 08:21 Dose: 10 mg Magnesium Hydroxide (Milk Of Magnesia Liq*) 30 ml PO Q6H PRN PRN Reason: CONSTIPATION Last Admin: 10/01/17 08:22 Dose: 30 ml Metoprolol Succinate (Toprol Xl Tab*) 25 mg PO BEDTIME [facility] Last Admin: 09/30/17 21:25 Dose: 25 mg Mometasone Furoate (Asmanex 220 Mcg Mdi *) 2 puff INH DAILY [facility] Last Admin: 09/30/17 09:18 Dose: 2 puff Morphine Sulfate (Morphine Vial*) 4 mg IV Q4H PRN PRN Reason: PAIN - BREAKTHROUGH Last Admin: 09/29/17 02:25 Dose: 4 mg Ondansetron HCl (Zofran Inj*) 4 mg IV Q6H PRN PRN Reason: NAUSEA/VOMITING Oxycodone/Acetaminophen (Percocet 5/325 Tab*) 2 tab PO Q4H PRN PRN Reason: PAIN - MODERATE TO SEVERE Last Admin: 10/01/17 12:29 Dose: 2 tab Oxycodone/Acetaminophen (Percocet 5/325 Tab*) 1 tab PO Q4H PRN PRN Reason: PAIN - MILD TO MODERATE Pharmacy Profile Note (Coumadin Daily Reminder*) 1 note FOLLOW UP 1700 [facility] Last Admin: 09/30/17 19:28 Dose: 1 note Rosuvastatin Calcium (Crestor (Nf)) 20 mg PO BEDTIME [facility] Last Admin: 09/30/17 21:27 Dose: 20 mg Sertraline HCl (Zoloft*) 75 mg PO BEDTIME [facility] Last Admin: 09/30/17 21:27 Dose: 75 mg Tamsulosin HCl (Flomax Cap*) 0.4 mg PO BEDTIME [facility] Last Admin: 09/30/17 21:28 Dose: 0.4 mg Vital Signs - 8 hr 10/01/17 10/01/17 10/01/17 11:31 12:29 15:08 Temperature 97.6 F Pulse Rate 81 Respiratory 16 16 16 Rate Blood Pressure 103/69 (mmHg) O2 Sat by Pulse 96 Oximetry Oxygen Devices in Use Now: None Appearance: lying flat, NAD Eyes: No Scleral Icterus, PERRLA Ears/Nose/Mouth/Throat: NL Teeth, Lips, Gums, Clear Oropharnyx Neck: NL Appearance and Movements; NL JVP Respiratory: Symmetrical Chest Expansion and Respiratory Effort, Clear to Auscultation Cardiovascular: NL Sounds; No Murmurs; No JVD, RRR Abdominal: NL Sounds; No Tenderness; No Distention Extremities: No Edema, - - left hip TTP, bandage cdi, soft Neurological: Alert and Oriented x 3 Result Diagrams: 10/01/17 05:43 10/01/17 05:43 Additional Lab and Data: Lab Results 09/27/17 09/27/17 09/27/17 Range/Units 11:49 11:49 11:49 WBC 13.4 H (3.5-10.8) 10^3/ul RBC 4.36 (4.0-5.4) 10^6/ul Hgb 13.2 L (14.0-18.0) g/dl Hct 39 L (42-52) % MCV 90 (80-94) fL MCH 30 (27-31) pg MCHC 34 (31-36) g/dl RDW 14 (10.5-15) % Plt Count 277 (150-450) 10^3/ul MPV 7.9 (7.4-10.4) um3 Neut % (Auto) 76.2 (38-83) % Lymph % (Auto) 9.6 L (25-47) % [place] % (Auto) 9.3 H (0-7) % Eos % (Auto) 4.2 (0-6) % Baso % (Auto) 0.7 (0-2) % Absolute Neuts (auto) 10.2 H (1.5-7.7) 10^3/ul Absolute Lymphs (auto) 1.3 (1.0-4.8) 10^3/ul Absolute Monos (auto) 1.2 H (0-0.8) 10^3/ul Absolute Eos (auto) 0.6 (0-0.6) 10^3/ul Absolute Basos (auto) 0.1 (0-0.2) 10^3/ul Absolute Nucleated RBC 0 10^3/ul Nucleated RBC % 0.1 Sodium 136 L (139-145) mmol/L Potassium 4.8 (3.5-5.0) mmol/L Chloride 109 (101-111) mmol/L Carbon Dioxide 20 L (22-32) mmol/L Anion Gap 7 (2-11) mmol/L BUN 32 H (6-24) mg/dL Creatinine 1.63 H (0.67-1.17) mg/dL Est GFR ( Amer) 57.4 (>60) Est GFR (Non-Af Amer) 44.7 (>60) BUN/Creatinine Ratio 19.6 (8-20) Glucose 147 H (70-100) mg/dL Lactic Acid 1.5 (0.5-2.0) mmol/L Calcium 9.9 (8.6-10.3) mg/dL Total Bilirubin 0.50 (0.2-1.0) mg/dL AST 20 (13-39) U/L ALT 20 (7-52) U/L Alkaline Phosphatase 105 H (34-104) U/L CK-MB (CK-2) 4.3 (0.6-6.3) ng/mL Troponin I 0.01 (<0.04) ng/mL Total Protein 7.9 (6.4-8.9) g/dL Albumin 4.4 (3.2-5.2) g/dL Globulin 3.5 (2-4) g/dL Albumin/Globulin Ratio 1.3 (1-3) Urine Color Urine Appearance Urine pH (5-9) Ur Specific [place] (1.010-1.030) Urine Protein (Negative) Urine Ketones (Negative) Urine Blood (Negative) Urine Nitrate (Negative) Urine Bilirubin (Negative) Urine Urobilinogen (Negative) Ur Leukocyte Esterase (Negative) Urine Glucose (Negative) 18 Range/Units 15:27 WBC (3.5-10.8) 10^3/ul RBC (4.0-5.4) 10^6/ul Hgb (14.0-18.0) g/dl Hct (42-52) % MCV (80-94) fL MCH (27-31) pg MCHC (31-36) g/dl RDW (10.5-15) % Plt Count (150-450) 10^3/ul MPV (7.4-10.4) um3 Neut % (Auto) (38-83) % Lymph % (Auto) (25-47) % [place] % (Auto) (0-7) % Eos % (Auto) (0-6) % Baso % (Auto) (0-2) % Absolute Neuts (auto) (1.5-7.7) 10^3/ul Absolute Lymphs (auto) (1.0-4.8) 10^3/ul Absolute Monos (auto) (0-0.8) 10^3/ul Absolute Eos (auto) (0-0.6) 10^3/ul Absolute Basos (auto) (0-0.2) 10^3/ul Absolute Nucleated RBC 10^3/ul Nucleated RBC % Sodium (139-145) mmol/L Potassium (3.5-5.0) mmol/L Chloride (101-111) mmol/L Carbon Dioxide (22-32) mmol/L Anion Gap (2-11) mmol/L BUN (6-24) mg/dL Creatinine (0.67-1.17) mg/dL Est GFR ( Amer) (>60) Est GFR (Non-Af Amer) (>60) BUN/Creatinine Ratio (8-20) Glucose (70-100) mg/dL Lactic Acid (0.5-2.0) mmol/L Calcium (8.6-10.3) mg/dL Total Bilirubin (0.2-1.0) mg/dL AST (13-39) U/L ALT (7-52) U/L Alkaline Phosphatase (34-104) U/L CK-MB (CK-2) (0.6-6.3) ng/mL Troponin I (<0.04) ng/mL Total Protein (6.4-8.9) g/dL Albumin (3.2-5.2) g/dL Globulin (2-4) g/dL Albumin/Globulin Ratio (1-3) Urine Color Yellow Urine Appearance Clear Urine pH 5.0 (5-9) Ur Specific [place] 1.012 (1.010-1.030) Urine Protein Negative (Negative) Urine Ketones Negative (Negative) Urine Blood Negative (Negative) Urine Nitrate Negative (Negative) Urine Bilirubin Negative (Negative) Urine Urobilinogen Negative (Negative) Ur Leukocyte Esterase Negative (Negative) Urine Glucose 1+(50 mg/dl) A (Negative) Microbiology and Other Data: Microbiology 09/27/17 23:48 Nasal Screen MRSA (PCR)(BATSHEVA) - Final Nasal Mrsa Not Detected Assess/Plan/Problems-Billing Assessment: 52 yo prisoner from [place] with h/o CVAx4 (last one at [facility] in 07/2017), CAD (last cath pt remembers with stent in 2005), CKD stage3, DM2(on insulin), dementia presents after a fall with left femur fx s/p left jared 5/20 - Patient Problems (1) Fracture of femoral neck, left Comment: s/p left hip hemiarthoplasty on 09/29/17. Doing well As per d/w ortho service. Pt will be placed on Coumadin and ASA, Plavix will be held when on Coumadin. Pt WBAT on post op leg (2) CAD (coronary artery disease) Comment: With history of [place] and HF. EF noted to be 55% in 07/2017 Continue metoprolol, Isosorbide dinitrate. ASA, Lasix , aldactone and plavix held (3) BPH (benign prostatic hyperplasia) Comment: - On flomax (4) CKD stage 3 due to type 2 diabetes mellitus Comment: creat at baseline (5) CVA (cerebral vascular accident) Comment: 4 CVAs in the past -last one in 07/2017 Holding ASA Plavix to be held when on Coumadin Pt has baseline left sided weakness and left facial droop (6) Dementia Comment: On aricept Unclear etiology AOx3 on exam (7) Diabetes mellitus Comment: A1c = 8.6 in 07/28 will cont ISS and Lantus lantus restarted 09/30 in evening (8) DVT prophylaxis Comment: coumadin dose held today as per ortho service Status and Disposition: inpatient
[2017-10-01] MEDS: Mometasone 220 MCG MDI INH SCH (17:03)
[2017-10-01] MEDS: Cholecalciferol TAB* 1000 UNITS PO SCH (20:54)
[2017-10-01] MEDS: Metoprolol Succinate XL TAB* 25 MG PO SCH (20:56)
[2017-10-01] MEDS: Donepezil TAB* 5 MG PO SCH (20:56)
[2017-10-01] MEDS: Sertraline* 25 MG TAB PO SCH (20:56)
[2017-10-01] MEDS: CMC:Rosuvastatin (NF) 20 MG TAB PO SCH (20:56)
[2017-10-01] MEDS: Tamsulosin CAP* 0.4 MG PO SCH (20:56)
[2017-10-02] MEDS: oxyCODONE/Acetamin 5/325 MG* TAB PO PRN ×4 (01:52→16:56)
[2017-10-02] MEDS: Cyclobenzaprine TAB* 10 MG PO PRN ×3 (01:52→23:30)
[2017-10-02] MEDS: Magnesium Hydroxide LIQ* 30 ML UDC PO PRN (06:08)
[2017-10-02 06:09] LABS: ABS Basophils 0.2 10^3/ul (0-0.2); ABS Lymphocytes 2.3 10^3/ul (1.0-4.8); ABS Monocytes 1.1 10^3/ul (0-0.8); ABS Neutrophils 7.5 10^3/ul (1.5-7.7); ABS Nucleated RBC 0 10^3/ul; Eosinophil % 8.5 % (0-6); Hematocrit 32 % (42-52); Hemoglobin 10.7 g/dl (14.0-18.0); Lymphocyte % 18.8 % (25-47); Mean Corpuscular HGB Conc 34 g/dl (31-36); Mean Corpuscular Hemoglobin 30 pg (27-31); Mean Corpuscular Volume 90 fL (80-94); Mean Platelet Volume 7.9 um3 (7.4-10.4); Nucleated Red Blood Cells % 0; Platelet Count 344 10^3/ul (150-450); Red Blood Count 3.53 10^6/ul (4.0-5.4); Red Cell Distribution Width 14 % (10.5-15)
[2017-10-02 06:28] LABS: EGFR Non-African American 60.1 (>60)
[2017-10-02] MEDS: Insulin GLARGINE(*) 1 UNITS UNIT SUBCUT SCH ×2 (08:28→23:28)
[2017-10-02] MEDS: Docusate CAP* 100 MG PO SCH (08:28)
[2017-10-02] MEDS: Furosemide TAB* 20 MG PO SCH (08:28)
[2017-10-02] MEDS: Aspirin EC TAB* 81 MG TAB.EC PO SCH (08:28)
[2017-10-02] MEDS: Famotidine TAB* 20 MG PO SCH ×2 (08:28→23:31)
[2017-10-02] MEDS: Cetirizine* 10 MG TAB PO SCH (08:28)
[2017-10-02] MEDS: Gemfibrozil TAB* 600 MG PO SCH ×2 (08:28→23:28)
[2017-10-02] MEDS: Insulin LISPRO* 1 UNITS UNIT SUBCUT SCH ×4 (08:29→23:27)
[2017-10-02] MEDS: Mometasone 220 MCG MDI INH SCH (09:18)
[2017-10-02] MEDS: Isosorbide Dinitrate TAB* 10 MG PO SCH ×2 (11:18→23:31)
--- NOTE | 2017-10-02 15:19 | PN ---
Progress Note - Progress Note Date of Service: 10/02/17 SOAP: Subjective: []Patient seen OOB in chair, two guards present. His left hip is not painful at this time. Denies CP, SOB, dizziness. Has baseline weakness and numbness of LLE due to hx CVA. Objective: []General: Well appearing, NAD, sitting up in chair with 2 guards present. LLE: Dressing changed, dressing with mild serosanguinous discharge. Incision CDI with well approximated wound edges, no erythema or discharge. Thigh is soft. DF/PF intact. BL LE: Calves supple and nontender without erythema, edema or palpable cords. Assessment: [] Stable 52 y/o male s/p Left hemiarthroplasty by Dr. Spangler 09/29/2017. Plan: - DVT prophylaxis- Coumadin 2 mg today and ASA x 4 weeks, than resume Plavix - Continue PT/ OT, hip precautions - Follow up with Dr. Spangler within 3-4 weeks post-op - Full Weight bearing - Daily dry sterile dressing change - Staple removal 10-14 days post op - Ready for DC from orthopedic standpoint, DC when medically ready - Vital Signs Temp 97.3 F 10/02/17 11:22 Pulse 91 10/02/17 11:22 Resp 16 10/02/17 13:11 BP 120/73 10/02/17 11:22 Pulse Ox 97 10/02/17 11:22 Intake & Output 10/01/17 10/02/17 10/02/17 18:59 06:59 18:59 Intake Total 400 680 230 Output Total 425 750 Balance -25 -70 230 Intake: Oral 400 680 230 Output: Urine 425 750 Other: Estimated Void Medium Small Medium # Voids 1 1 Laboratory Last Values WBC 12.0 10^3/ul (3.5-10.8) H 10/02/17 05:35 RBC 3.53 10^6/ul (4.0-5.4) L 10/02/17 05:35 Hgb 10.7 g/dl (14.0-18.0) L 10/02/17 05:35 Hct 32 % (42-52) L 10/02/17 05:35 MCV 90 fL (80-94) 10/02/17 05:35 MCH 30 pg (27-31) 10/02/17 05:35 MCHC 34 g/dl (31-36) 10/02/17 05:35 RDW 14 % (10.5-15) 10/02/17 05:35 Plt Count 344 10^3/ul (150-450) 10/02/17 05:35 MPV 7.9 um3 (7.4-10.4) 10/02/17 05:35 Neut % (Auto) 62.4 % (38-83) 10/02/17 05:35 Lymph % (Auto) 18.8 % (25-47) L 10/02/17 05:35 [place] % (Auto) 9.0 % (0-7) H 10/02/17 05:35 Eos % (Auto) 8.5 % (0-6) H 10/02/17 05:35 Baso % (Auto) 1.3 % (0-2) 10/02/17 05:35 Absolute Neuts (auto) 7.5 10^3/ul (1.5-7.7) 10/02/17 05:35 Absolute Lymphs (auto) 2.3 10^3/ul (1.0-4.8) 10/02/17 05:35 Absolute Monos (auto) 1.1 10^3/ul (0-0.8) H 10/02/17 05:35 Absolute Eos (auto) 1.0 10^3/ul (0-0.6) H 10/02/17 05:35 Absolute Basos (auto) 0.2 10^3/ul (0-0.2) 10/02/17 05:35 Absolute Nucleated RBC 0 10^3/ul 10/02/17 05:35 Nucleated RBC % 0 10/02/17 05:35 INR (Anticoag Therapy) 2.00 (0.77-1.02) H 10/02/17 13:54 APTT 27.7 seconds (26.0-36.3) 09/29/17 13:56 Sodium 136 mmol/L (139-145) L 10/02/17 05:35 Potassium 4.3 mmol/L (3.5-5.0) 10/02/17 05:35 Chloride 105 mmol/L (101-111) 10/02/17 05:35 Carbon Dioxide 23 mmol/L (22-32) 10/02/17 05:35 Anion Gap 8 mmol/L (2-11) 10/02/17 05:35 BUN 28 mg/dL (6-24) H 10/02/17 05:35 Creatinine 1.26 mg/dL (0.67-1.17) H 10/02/17 05:35 Est GFR ( Amer) 77.3 (>60) 10/02/17 05:35 Est GFR (Non-Af Amer) 60.1 (>60) 10/02/17 05:35 BUN/Creatinine Ratio 22.2 (8-20) H 10/02/17 05:35 Glucose 169 mg/dL (70-100) H 10/02/17 05:35 POC Glucose (mg/dL) 236 mg/dL (70-100) H 10/02/17 10:58 Lactic Acid 1.5 mmol/L (0.5-2.0) 09/27/17 11:49 Calcium 9.5 mg/dL (8.6-10.3) 10/02/17 05:35 Total Bilirubin 0.50 mg/dL (0.2-1.0) 09/27/17 11:49 AST 20 U/L (13-39) 09/27/17 11:49 ALT 20 U/L (7-52) 09/27/17 11:49 Alkaline Phosphatase 105 U/L (34-104) H 09/27/17 11:49 CK-MB (CK-2) 4.3 ng/mL (0.6-6.3) 09/27/17 11:49 Troponin I 0.01 ng/mL (<0.04) 09/27/17 11:49 Total Protein 7.9 g/dL (6.4-8.9) 09/27/17 11:49 Albumin 4.4 g/dL (3.2-5.2) 09/27/17 11:49 Globulin 3.5 g/dL (2-4) 09/27/17 11:49 Albumin/Globulin Ratio 1.3 (1-3) 09/27/17 11:49 Urine Color Yellow 09/27/17 15:27 Urine Appearance Clear 09/27/17 15:27 Urine pH 5.0 (5-9) 09/27/17 15:27 Ur Specific [place] 1.012 (1.010-1.030) 09/27/17 15:27 Urine Protein Negative (Negative) 09/27/17 15:27 Urine Ketones Negative (Negative) 09/27/17 15: Urine Blood Negative (Negative) 09/27/17 15: Urine Nitrate Negative (Negative) 09/27/17 15: Urine Bilirubin Negative (Negative) 09/27/17 15:27 Urine Urobilinogen Negative (Negative) 09/27/17 15: Ur Leukocyte Esterase Negative (Negative) 09/27/17 15:27 Urine Glucose 1+(50 mg/dl) (Negative) A 09/27/17 15:27 Blood Type O Positive 09/28/17 06:07 Antibody Screen Negative 09/28/17 06:07
[2017-10-02] MEDS ORDERED: Warfarin TAB(*) 2 MG PO ONE (17:00)
[2017-10-02 22:11] LABS: Urine Appearance Clear; Urine Blood Negative (Negative); Urine Color Yellow; Urine Ketones Negative (Negative); Urine Protein Negative (Negative); Urine Specific Gravity 1.014 (1.010-1.030); Urine Urobilinogen Negative (Negative)
[2017-10-02] MEDS: Tamsulosin CAP* 0.4 MG PO SCH (23:28)
[2017-10-02] MEDS: Metoprolol Succinate XL TAB* 25 MG PO SCH (23:29)
[2017-10-02] MEDS: Donepezil TAB* 5 MG PO SCH (23:29)
[2017-10-02] MEDS: CMC:Rosuvastatin (NF) 20 MG TAB PO SCH (23:29)
[2017-10-02] MEDS: Cholecalciferol TAB* 1000 UNITS PO SCH (23:30)
[2017-10-02] MEDS: Sertraline* 25 MG TAB PO SCH (23:30)
[2017-10-03] MEDS: oxyCODONE/Acetamin 5/325 MG* TAB PO PRN ×2 (00:05→06:01)
[2017-10-03] MEDS: Magnesium Hydroxide LIQ* 30 ML UDC PO PRN (06:01)
[2017-10-03 08:08] VITALS: BP 99/64
[2017-10-03] MEDS: Cyclobenzaprine TAB* 10 MG PO PRN (08:14)
[2017-10-03] MEDS: Insulin LISPRO* 1 UNITS UNIT SUBCUT SCH (08:14)
[2017-10-03] MEDS: Insulin GLARGINE(*) 1 UNITS UNIT SUBCUT SCH (08:14)
[2017-10-03] MEDS: Famotidine TAB* 20 MG PO SCH (08:14)
[2017-10-03] MEDS: Furosemide TAB* 20 MG PO SCH (08:15)
[2017-10-03] MEDS: Aspirin EC TAB* 81 MG TAB.EC PO SCH (08:15)
[2017-10-03] MEDS: Cetirizine* 10 MG TAB PO SCH (08:15)
[2017-10-03] MEDS: Gemfibrozil TAB* 600 MG PO SCH (08:15)
[2017-10-03] MEDS: Docusate CAP* 100 MG PO SCH (08:15)
[2017-10-03] MEDS: Isosorbide Dinitrate TAB* 10 MG PO SCH (08:16)
[2017-10-03] MEDS: Mometasone 220 MCG MDI INH SCH (08:17)
--- NOTE | 2017-10-03 11:48 | DS ---
DISCHARGE SUMMARY: DATE OF ADMISSION: 09/27/17 DATE OF DISCHARGE: 10/02/17 PRIMARY CARE PROVIDER: [facility]. DISPOSITION ON DISCHARGE: [facility] for higher level of care. PRIMARY DIAGNOSES: Left femoral neck fracture, status post left hip hemiarthroplasty on 09/29/[address] Spangler. SECONDARY DIAGNOSES: Include: 1. History of coronary artery disease. 2. Benign prostatic hyperplasia 3. Chronic kidney disease stage 3. 4. Multiple cerebrovascular accidents, last in July 2017. 5. History of dementia. 6. Type 2 diabetes mellitus, on insulin. MEDICATIONS ON DISCHARGE: Include: 1. Zoloft 75 mg at bedtime. 2. Flomax 0.4 mg at bedtime. 3. Rosuvastatin 20 mg at bedtime. 4. Ranitidine 150 mg twice daily. 5. Metoprolol tartrate 25 mg at bedtime. 6. Isosorbide dinitrate 10 mg twice daily. 7. Insulin glargine 40 units twice daily. 8. Insulin lispro sliding scale as indicated in discharge, blood sugar between 131 and 150, 2 units; blood sugar between 151 and 200, 3 units; blood sugar between 201 and 250, 6 units; blood sugar between 251 and 300, 9 units; blood sugar between 301 and 350, 12 units; blood sugar between 351 and 400, 15 units. 9. Gemfibrozil 600 mg twice daily. 10. Furosemide 20 mg daily. 11. Fluticasone 220 mcg 1 puff twice daily. 12. Aricept 5 mg at bedtime. 13. Docusate 200 mg daily. 14. Cholecalciferol 5000 units at bedtime. 15. Cetirizine 10 mg daily. 16. Aspirin 81 mg daily. 17. Acetaminophen 650 mg 3 times a day as needed for pain. 18. Oxycodone/acetaminophen 5/325 mg 2 tabs every 4 hours as needed for pain, max daily dose 12 tabs. 19. Tylenol in combination with acetaminophen tabs not to exceed 4000 mg daily. 20. Coumadin 4 mg daily - INR to be checked on 10/04/17, goal INR 2 to 5. PERTINENT LABORATORY DATA: INR on day of discharge is 2.0. Creatinine on day of discharge 1.26. HISTORY OF PRESENT ILLNESS AND HOSPITAL COURSE: This is a 52-year-old man with past medical history as outlined in the history of present illness on the day of admission including multiple strokes, CAD, type 2 insulin dependent diabetes mellitus, COPD presented to the hospital from [facility] after falling and fracturing his hip. He underwent arthroplasty without complications. He will be anticoagulated for 1 month with Coumadin and in addition to his low-dose aspirin, which he takes for CAD. His Plavix will be held for that month, after which it should be started after discontinuation of Coumadin. He should follow up with Dr. Spangler in 4 weeks. His weight-bearing status is full on bilateral legs. He has dry sterile dressing, which should be changed daily. [place] removed in 10 to 14 days as indicated in the discharge summary. FOLLOWUP: At follow up please as indicated above. 1. Reinstitute Plavix after discontinuation of Coumadin. 2. Follow INR periodically with next check on Saturday10/04/17 goal 2 to 3. 3. Followup with Dr. Spangler in his clinic in 3 to 4 weeks. 4. Change dressing on hip daily with dry sterile dressing. 5. Remove mart[place] in 10 to 14 days. 6. Continue PT/OT. Reasons to return to the hospital including but not limited to recurrent or worsening symptoms including chest pain, shortness of breath, nausea, vomiting, lightheadedness, fevers, chills, night sweats, bleeding from any source should be considered. TIME SPENT: Greater than 60 minutes was spent on discharge of the patient of which greater than half was spent [id number] with the patient. [id number]/[facility] #: [id number] SHY
== END 2017-10-03 09:05 | DRG 301 ==
LOC: ED 11:15 → EEVIPCON 16:03 → SSU 16:03
PROVIDERS: ADMIT Internal Medicine; ATTEND Internal Medicine
PROC: 0SRS03Z Replacement of Left Hip Joint, Femoral Surface with Ceramic Synthetic Substitute, Open Approach (ICD-10-PCS; principal; 2017-09-27)
DX: S72.002A Fracture of unspecified part of neck of left femur, initial encounter for closed fracture (principal); N17.9 Acute kidney failure, unspecified; I13.0 Hypertensive heart and chronic kidney disease with heart failure and stage 1 through stage 4 chronic kidney disease, or unspecified chronic kidney disease; I69.354 Hemiplegia and hemiparesis following cerebral infarction affecting left non-dominant side; I25.10 Atherosclerotic heart disease of native coronary artery without angina pectoris; N40.0 Benign prostatic hyperplasia without lower urinary tract symptoms; N18.3 Chronic kidney disease, stage 3 (moderate); F03.90 Unspecified dementia, unspecified severity, without behavioral disturbance, psychotic disturbance, mood disturbance, and anxiety; K21.9 Gastro-esophageal reflux disease without esophagitis; E11.40 Type 2 diabetes mellitus with diabetic neuropathy, unspecified; F32.9 Major depressive disorder, single episode, unspecified; J44.9 Chronic obstructive pulmonary disease, unspecified; W19.XXXA Unspecified fall, initial encounter; E78.5 Hyperlipidemia, unspecified; H91.90 Unspecified hearing loss, unspecified ear; I50.9 Heart failure, unspecified; E11.22 Type 2 diabetes mellitus with diabetic chronic kidney disease; E11.51 Type 2 diabetes mellitus with diabetic peripheral angiopathy without gangrene; Z79.4 Long term (current) use of insulin; Z79.82 Long term (current) use of aspirin; Z79.01 Long term (current) use of anticoagulants; I25.2 Old myocardial infarction; Z88.0 Allergy status to penicillin; Z88.2 Allergy status to sulfonamides; Z88.5 Allergy status to narcotic agent; Z88.8 Allergy status to other drugs, medicaments and biological substances; Z80.51 Family history of malignant neoplasm of kidney; Z87.891 Personal history of nicotine dependence; Z91.5 Personal history of self-harm; Z95.5 Presence of coronary angioplasty implant and graft; Z56.0 Unemployment, unspecified; I69.392 Facial weakness following cerebral infarction; Z99.3 Dependence on wheelchair; Y92.149 Unspecified place in prison as the place of occurrence of the external cause
CPT/HCPCS: 36415; 70450; 71046; 72125; 72170; 72192; 80048; 80053; 81003; 82553; 82565; 83605; 84484; 84520; 85025; 85610; 85730; 86850; 86900; 86901; 87641; 88305; 88311; 93005; 94640; 99284; A9270-GY; C1776; G8978-GP-CL; G8979-GP-CI; G8987-GO-CL; G8988-GO-CJ; J0330; J0690; J1100; J1170; J1240; J1644; J1885; J2001; J2250; J2270; J2704; J2765; J3010; J3490